=== PATIENT | female | born 1960 | race African-American/Black ===

== ENCOUNTER 2018-08-20 09:31 | Day surgery (SDC) | payer OTHER ==
[2018-08-20 10:34] VITALS: BMI 22.1
[2018-08-20] MEDS ORDERED: ceFAZolin SODIUM 1 GM VIAL ONE (11:01)
[2018-08-20] MEDS ORDERED: DEXAMETHASONE SOD PHOSPHATE 4 MG/1 ML VIAL ONE (12:47)
[2018-08-20] MEDS ORDERED: LIDOCAINE HCL/PF 2% SDV 5ML VIAL ONE (12:47)
[2018-08-20] MEDS ORDERED: PROPOFOL 20 ML ONE ×2 (12:47)
[2018-08-20] MEDS ORDERED: GLYCOPYRROLATE 0.2 MG/1 ML VIAL ONE (12:59)
[2018-08-20] MEDS ORDERED: ceFAZolin SODIUM 1 GM VIAL IVPB ONE (13:03)
[2018-08-20] MEDS ORDERED: MIDAZOLAM HCL 2 MG/2 ML SINGLE DOSE VIAL ONE (13:04)
[2018-08-20] MEDS ORDERED: LIDOCAINE HCL 1%, 10 MG/ML (20ML VIAL) ONE (13:08)
[2018-08-20] MEDS ORDERED: LIDOCAINE 1%/EPI 1:100000 (20 ML MULTI DOSE VIAL) IJ ONE (13:15)
[2018-08-20] MEDS ORDERED: KETOROLAC TROMETHAMINE 30 MG/1 ML VIAL ONE (13:41)
[2018-08-20] MEDS ORDERED: FERRIC SUBSULFATE 500 ML BOTTLE TP ONE (13:42)
[2018-08-20] MEDS ORDERED: EPHEDRINE SULFATE/0.9% NACL/PF 50 MG/10 ML SYRINGE NR ONE ×2 (13:42)
[2018-08-20] MEDS ORDERED: ACETAMINOPHEN INJECTION 100 ML IVPB ONE (13:56)
--- NOTE | 2018-08-20 13:56 | HP ---
History & Physical Update - History History: No Change (Plan for D&C, CKC.) - Physical Physical: No Change - Assessment Assessment: No Change - Plan Plan: No Change
[2018-08-20] MEDS ORDERED: PROMETHAZINE HCL 25 MG/1 ML VIAL IVPUSH PRN (14:01)
[2018-08-20] MEDS ORDERED: ONDANSETRON 4 MG/2 ML VIAL IVPUSH PRN (14:01)
[2018-08-20] MEDS ORDERED: oxyCODONE HCL 5 MG TABLET PO PRN ×2 (14:01)
[2018-08-20] MEDS ORDERED: ACETAMINOPHEN 1000 MG/100 ML VIAL (NON FORMULARY) IVPB ONE (14:02)
[2018-08-20] MEDS ORDERED: LACTATED RINGERS SOLUTION 1,000 ML IV SCH (14:15)
[2018-08-20] MEDS ORDERED: oxyCODONE HCL 5 MG TABLET PO ONE (15:38)
[2018-08-20 15:41] VITALS: PULSE 57
[2018-08-20] MEDS ORDERED: oxyCODONE HCL 5 MG TABLET ONE (15:42)
[2018-08-20 16:23] VITALS: BP 140/61; TEMP 98.4
--- NOTE | 2018-08-21 10:53 | OP ---
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 PROCEDURE: Cold knife conization of the cervix and dilatation and curettage. SURGEON: Norma Ortega MD ANESTHESIA: MAC and local. ESTIMATED BLOOD LOSS: 10 mL. COMPLICATIONS: None. INDICATIONS: This is a 58-year-old with history of pinkish postmenopausal discharge. She had a Pap smear that was negative. High-risk HPV was positive. High-risk HPV 16 was positive. Endometrial biopsy on July 16, 2018, showed fragments of squamous cell carcinoma. Endocervical curettage showed squamous cell carcinoma. Cervical biopsy at 6 and 12 o'clock showed benign ectocervix. CT scan of the chest, abdomen, and pelvis showed a hematometra. Otherwise, there was no lymphadenopathy or masses visualized. The patient was counseled regarding surgical management. Risks, benefits, indications, and alternatives were discussed with the patient. All questions were answered. Informed consent was signed. Patient was advised that this was a diagnostic and not therapeutic procedure as it will direct the type of hysterectomy necessary. DESCRIPTION OF PROCEDURE: The patient was brought to the operating room, placed in the dorsal supine position. Moderate sedation was achieved. She was placed in the dorsal lithotomy position in Emil stirrups and prepped and draped in normal sterile fashion. Speculum was placed in the vagina. 5% acetic acid as applied to the entire cervix. A colposcopy was performed with no suspicious lesions or acetowhite epithelium seen. The cervix was infiltrated with 10 mL of 1% lidocaine and epinephrine at 3, 6, 9, and 12 o'clock into the cervical stroma. Using the 11- blade scalpel, a circumferential excision was performed around the endocervix. Using the Allis clamp, the cone specimen was grasped, and using the 11-blade knife, again excision was performed to free the specimen. It was handed off the field as cold knife conization. Uterus was then gently sounded and dilated, and there was an egress of dark brownish fluid noted, which was turbid. Endometrial curetting was performed, minimal tissue seen. The conization bed was then cauterized using the rollerball electrocautery and Monsels was applied. For added assurance, Surgicel was placed in the endocervix. Excellent hemostasis was seen. All instruments were removed from the patients vagina. The patient was awakened and transferred in stable condition to the PACU. Mirtha De [id number] MTDD
--- NOTE | 2018-08-23 14:41 | PATH ---
Surgical Pathology Report Patient Name: YOANNA MATHEW [facility]. Rec. #: [id number] /Age/Gender: 1960 (Age: 58) / F Account: [id number] Location: [facility] SURGICAL Taken: 08/20/2018 Received: 08/21/2018 Reported: 08/23/2018 Physicians: Norma Ortega MD Specimen(s) Received A: CERVIX, COLD KNIFE CONE BIOPSY B: ENDOCERVICAL CURETTINGS C: ENDOMETRIAL CURETTINGS Clinical History Cervix cancer, hematometra Final Diagnosis A. CERVIX, COLD KNIFE CONE BIOPSY: INVASIVE SQUAMOUS CELL CARCINOMA, NONKERATINIZING TYPE, MEASURING 3 CM IN GREATEST DIMENSION. MARGINS ARE INVOLVED BY INVASIVE CARCINOMA. DEPTH OF STROMAL INVASION: 6MM LYMPHOVASCULAR INVASION IDENTIFIED. B. ENDOCERVICAL CURETTINGS: FRAGMENTS OF SQUAMOUS CELL CARCINOMA. C. ENDOMETRIAL CURETTINGS: FRAGMENTS OF SQUAMOUS CELL CARCINOMA. NO ENDOMETRIAL TISSUE PRESENT. Comments Surgical Pathology Cancer Case Summary Procedure _x_ Cold knife cone excision Tumor Site _x_ Cannot be determined: unoriented specimen. Tumor Size Greatest dimension (centimeters): 3cm (tumor involves all serial sections of the specimen) + Additional dimensions (centimeters): 1.0 x 0.6cm (depth of invasion) Histologic Type _x_ Squamous cell carcinoma, nonkeratinizing Histologic Grade _x_ G2: Moderately differentiated Stromal Invasion Depth of stromal invasion (millimeters): 6mm Margins Cervical margins and deep margin _x_ Involved by invasive carcinoma Lymphovascular Invasion _x_ Present Electronically Signed Jenny Abbott M.D. Gross Description A. Received in formalin labeled "cervix cone biopsy," is a 3.0 x 1.5 x 1.1 cm kim portion of soft tissue, consistent with a portion of cervix. There is no cervical os present and the specimen is unoriented. The specimen is inked blue, serially sectioned and entirely and sequentially submitted in 4 cassettes. B. Received in formalin labeled "endocervical curettings," is a 1.3 x 0.9 x 0.2 cm aggregate of kim-brown soft tissue fragments. The formalin is filtered and the specimen is entirely submitted in one cassette. C. Received in formalin labeled "endometrial curettings," is a 1.8 x 1.4 x 0.3 cm aggregate of kmi-brown soft tissue fragments admixed with blood clot. The formalin is filtered and the specimen is entirely submitted in one cassette. 08/21/201808/21/2018
== END 2018-08-20 16:30 | disposition home or self-care (01) ==
LOC: JASU-SURG 09:31
PROVIDERS: ATTEND Obstetrics & Gynecology Gynecologic Oncology
PROC: 0U5C7ZZ Destruction of Cervix, Via Natural or Artificial Opening (ICD-10-PCS; principal; 2018-08-20 12:00)
PROC: 0UDB7ZX Extraction of Endometrium, Via Natural or Artificial Opening, Diagnostic (ICD-10-PCS; 2018-08-20 12:00)
DX: C53.9 Malignant neoplasm of cervix uteri, unspecified (principal); N85.7 Hematometra
CPT/HCPCS: 36415; 84702; 86850; 86900; 86901; 88305-TC; 88307-TC; 94760; J0131

== ENCOUNTER 2018-11-04 08:33 | Day surgery (SDC) | payer OTHER ==
[2018-11-01 12:13] VITALS: BMI 22.7
[2018-11-04 09:03] LABS: BASO % 0.7 % (0-2.0); EOS % 3.6 % (0-4.5); HEMATOCRIT 39.9 % (32.4-45.2); LYMPH % 40.7 % (8-40); MCH 29.1 pg (25.7-33.7); MCHC 32.7 g/dl (32.0-36.0); MEAN PLT VOLUME 7.7 fl (7.5-11.1); MONO % 7.1 % (3.8-10.2); NEUT % 47.9 % (42.8-82.8); PLATELET COUNT 308 K/MM3 (134-434); RBC 4.48 M/mm3 (3.60-5.2); RDW 14.2 % (11.6-15.6); WHITE BLOOD COUNT 4.4 K/mm3 (4.0-10.0)
[2018-11-04 09:29] LABS: ALBUMIN 3.9 g/dl (3.4-5.0); BILIRUBIN,TOTAL 0.2 mg/dL (0.2-1); BLOOD UREA NITROGEN 12.9 mg/dL (7-18); CALCIUM 9.7 mg/dL (8.5-10.1); CREATININE 0.8 mg/dL (0.55-1.3); MAGNESIUM 2.2 mg/dL (1.8-2.4); POTASSIUM 4.4 mmol/L (3.5-5.1); PREALBUMIN 31.5 mg/dl (20-40); TOT PROT 7.5 g/dl (6.4-8.2)
[2018-11-04 12:22] VITALS: TEMP 98.1
[2018-11-04 13:05] VITALS: BP 139/43; PULSE 66
== END 2018-11-04 13:00 | disposition home or self-care (01) ==
LOC: JRADIR 08:33
PROVIDERS: ATTEND Internal Medicine Hematology & Oncology
PROC: 0JH63XZ Insertion of Tunneled Vascular Access Device into Chest Subcutaneous Tissue and Fascia, Percutaneous Approach (ICD-10-PCS; principal; 2018-11-04)
PROC: 02HV33Z Insertion of Infusion Device into Superior Vena Cava, Percutaneous Approach (ICD-10-PCS; 2018-11-04)
PROC: B518ZZA Fluoroscopy of Superior Vena Cava, Guidance (ICD-10-PCS; 2018-11-04)
DX: C53.9 Malignant neoplasm of cervix uteri, unspecified (principal)
CPT/HCPCS: 36561; C1788; 36415; 77001-TC-FY; 80053; 83735; 84134; 85025

== ENCOUNTER 2018-11-05 06:27 | Day surgery (SDC) | payer OTHER | END 2018-11-05 17:17 | disposition home or self-care (01) | LOC: JONCCHEMO 06:27 → J7W 09:56 → JONCCHEMO 17:17 ==

== ENCOUNTER 2018-11-12 06:19 | Day surgery (SDC) | payer OTHER ==
[2018-11-11 11:07] LABS: BASO % 0.5 % (0-2.0); EOS % 2.1 % (0-4.5); HEMATOCRIT 40.8 % (32.4-45.2); HEMOGLOBIN 13.4 GM/dL (10.7-15.3); LYMPH % 32.8 % (8-40); MCH 29.2 pg (25.7-33.7); MCHC 32.8 g/dl (32.0-36.0); MEAN PLT VOLUME 7.8 fl (7.5-11.1); MONO % 7.8 % (3.8-10.2); NEUT % 56.8 % (42.8-82.8); PLATELET COUNT 302 K/MM3 (134-434); RBC 4.58 M/mm3 (3.60-5.2); RDW 14.1 % (11.6-15.6); WHITE BLOOD COUNT 2.8 K/mm3 (4.0-10.0)
[2018-11-11 11:35] LABS: BILIRUBIN,TOTAL 0.2 mg/dL (0.2-1); BLOOD UREA NITROGEN 19.8 mg/dL (7-18); CALCIUM 9.7 mg/dL (8.5-10.1); CREATININE 0.8 mg/dL (0.55-1.3); MAGNESIUM 2.2 mg/dL (1.8-2.4); POTASSIUM 4.1 mmol/L (3.5-5.1); TOT PROT 7.7 g/dl (6.4-8.2)
[~2018-11-12 06:19] MED LIST: CISPLATIN IV ONE; DEXAMETHASONE SODIUM PHOSPHATE 10 MG in SODIUM CHLORIDE 50 ML IVPB ONE; FOSAPREPITANT DIMEGLUMINE 150 MG in SODIUM CHLORIDE 150 ML IVPB ONE; MAGNESIUM SULFATE IVPB ONE; MANNITOL IVPB ONE; PALONOSETRON HCL 0.25 MG/5 ML VIAL IVPUSH ONE; POTASSIUM CHLORIDE IVPB ONE; SODIUM CHLORIDE IV ONE; [UNRECOGNIZED DRUG - OTHER] IVPB ONE
[2018-11-12] MEDS ORDERED: [UNRECOGNIZED DRUG - OTHER] IVPB ONE (08:00)
[2018-11-12] MEDS ORDERED: MAGNESIUM SULFATE IVPB ONE (08:00)
[2018-11-12] MEDS ORDERED: MANNITOL IVPB ONE (08:00)
[2018-11-12] MEDS ORDERED: POTASSIUM CHLORIDE IVPB ONE (08:00)
[2018-11-12] MEDS ORDERED: DEXAMETHASONE SODIUM PHOSPHATE 10 MG in SODIUM CHLORIDE 50 ML IVPB ONE (10:00)
[2018-11-12] MEDS ORDERED: FOSAPREPITANT DIMEGLUMINE 150 MG in SODIUM CHLORIDE 150 ML IVPB ONE (10:00)
[2018-11-12] MEDS ORDERED: PALONOSETRON HCL 0.25 MG/5 ML VIAL IVPUSH ONE (10:00)
[2018-11-12] MEDS ORDERED: SODIUM CHLORIDE IV ONE (10:30)
[2018-11-12] MEDS ORDERED: CISPLATIN IV ONE (10:30)
[2018-11-12] MEDS ORDERED: SODIUM CHLORIDE 0.45% 1,000 ML IV ONE (11:30)
[2018-11-12] MEDS ORDERED: MAGNESIUM SULF 50% (8.12 MEQ/2 ML-1 GM VIAL) IVPB ONE (11:30)
[2018-11-12 12:17] VITALS: TEMP 98.4
[2018-11-12] MEDS ORDERED: PORTA CATH FLUSH 10 ML IVPUSH ONE ×2 (17:21→18:16)
[2018-11-12 18:16] VITALS: BP 104/71; PULSE 66
== END 2018-11-12 18:12 | disposition home or self-care (01) ==
LOC: JONCCHEMO 06:19 → J7W 10:48 → JONCCHEMO 18:12
PROVIDERS: ATTEND Internal Medicine Hematology & Oncology
PROC: 3E04305 Introduction of Other Antineoplastic into Central Vein, Percutaneous Approach (ICD-10-PCS; principal; 2018-11-12)
PROC: 3E043GC Introduction of Other Therapeutic Substance into Central Vein, Percutaneous Approach (ICD-10-PCS; 2018-11-12)
PROC: 3E0437Z Introduction of Electrolytic and Water Balance Substance into Central Vein, Percutaneous Approach (ICD-10-PCS; 2018-11-12)
DX: Z51.11 Encounter for antineoplastic chemotherapy (principal); C53.8 Malignant neoplasm of overlapping sites of cervix uteri
CPT/HCPCS: 36415; 80053; 83735; 85025; 96361; 96367; 96375; 96413; J1453; J2469; J7030

== ENCOUNTER 2018-11-13 05:46 | Day surgery (SDC) | payer OTHER ==
[2018-11-13] MEDS ORDERED: TBO-FILGRASTIM 300 MCG/0.5 ML DISP.SYRINGE SQ ONE (14:45)
[2018-11-13 16:36] VITALS: BP 136/69; PULSE 76; TEMP 98
== END 2018-11-13 15:00 | disposition home or self-care (01) ==
LOC: JONCCHEMO 05:46 → J7W 14:11 → JONCCHEMO 15:00
PROVIDERS: ATTEND Internal Medicine Hematology & Oncology
PROC: 3E013GC Introduction of Other Therapeutic Substance into Subcutaneous Tissue, Percutaneous Approach (ICD-10-PCS; principal; 2018-11-13)
DX: Z76.89 Persons encountering health services in other specified circumstances (principal); Z53.8 Procedure and treatment not carried out for other reasons
CPT/HCPCS: 96372; J1447

== ENCOUNTER 2018-11-19 05:33 | Day surgery (SDC) | payer OTHER ==
[2018-11-19] MEDS ORDERED: [UNRECOGNIZED DRUG - OTHER] IVPB ONE (08:00)
[2018-11-19] MEDS ORDERED: MANNITOL IVPB ONE (08:00)
[2018-11-19] MEDS ORDERED: POTASSIUM CHLORIDE IVPB ONE (08:00)
[2018-11-19] MEDS ORDERED: MAGNESIUM SULFATE IVPB ONE ×2 (08:00→11:30)
[2018-11-19] MEDS ORDERED: DEXAMETHASONE SODIUM PHOSPHATE 10 MG in SODIUM CHLORIDE 50 ML IVPB ONE (10:00)
[2018-11-19] MEDS ORDERED: FOSAPREPITANT DIMEGLUMINE 150 MG in SODIUM CHLORIDE 150 ML IVPB ONE (10:00)
[2018-11-19] MEDS ORDERED: PALONOSETRON HCL 0.25 MG/5 ML VIAL IVPUSH ONE (10:00)
[2018-11-19] MEDS ORDERED: CISPLATIN IV ONE (10:30)
[2018-11-19] MEDS ORDERED: SODIUM CHLORIDE IV ONE (10:30)
[2018-11-19 10:46] LABS: BASO % 0.7 % (0-2.0); EOS % 1.8 % (0-4.5); HEMATOCRIT 38.8 % (32.4-45.2); HEMOGLOBIN 12.7 GM/dL (10.7-15.3); MCH 29.3 pg (25.7-33.7); MCHC 32.8 g/dl (32.0-36.0); MEAN CELL VOLUME 89.1 fl (80-96); MEAN PLT VOLUME 7.2 fl (7.5-11.1); MONO % 14.9 % (3.8-10.2); NEUT % 60.6 % (42.8-82.8); PLATELET COUNT 184 K/MM3 (134-434); RBC 4.35 M/mm3 (3.60-5.2); RDW 13.7 % (11.6-15.6); WHITE BLOOD COUNT 2.6 K/mm3 (4.0-10.0)
[2018-11-19 11:11] LABS: ALBUMIN 3.9 g/dl (3.4-5.0); BILIRUBIN,DIRECT 0.1 mg/dL (0.0-0.2); BILIRUBIN,TOTAL 0.2 mg/dL (0.2-1); BLOOD UREA NITROGEN 13.9 mg/dL (7-18); CALCIUM 9.3 mg/dL (8.5-10.1); MAGNESIUM 2.1 mg/dL (1.8-2.4); POTASSIUM 3.9 mmol/L (3.5-5.1); TOT PROT 7.3 g/dl (6.4-8.2)
[2018-11-19] MEDS ORDERED: SODIUM CHLORIDE 0.45% IVPB ONE (11:30)
[2018-11-19 17:53] VITALS: TEMP 98.5
[2018-11-19] MEDS ORDERED: PORTA CATH FLUSH 10 ML IVPUSH ONE ×2 (17:56→18:32)
[2018-11-19 21:18] VITALS: BP 140/74; PULSE 65
== END 2018-11-19 21:20 | disposition home or self-care (01) ==
LOC: JONCCHEMO 05:33 → J7W 12:42 → JONCCHEMO 21:20
PROVIDERS: ATTEND Internal Medicine Hematology & Oncology
DX: Z51.11 Encounter for antineoplastic chemotherapy (principal); C53.8 Malignant neoplasm of overlapping sites of cervix uteri
CPT/HCPCS: 36415; 80048; 80076; 83735; 85025; 96361; 96367; 96375; 96413; J1453; J2469; J7030

== ENCOUNTER 2018-11-20 05:35 | Day surgery (SDC) | payer OTHER ==
[2018-11-20] MEDS ORDERED: TBO-FILGRASTIM 480 MCG/0.8 ML DISP.SYRIN SQ ONE (12:15)
[2018-11-20 15:03] VITALS: BP 139/78; PULSE 63; TEMP 97.8
== END 2018-11-20 14:00 | disposition home or self-care (01) ==
LOC: JONCCHEMO 05:35 → J7W 12:04 → JONCCHEMO 14:00
PROVIDERS: ATTEND Internal Medicine Hematology & Oncology
PROC: 3E013GC Introduction of Other Therapeutic Substance into Subcutaneous Tissue, Percutaneous Approach (ICD-10-PCS; principal; 2018-11-20)
DX: C53.8 Malignant neoplasm of overlapping sites of cervix uteri (principal); Z76.89 Persons encountering health services in other specified circumstances
CPT/HCPCS: 96372; J1447

== ENCOUNTER 2018-11-26 05:28 | Day surgery (SDC) | payer OTHER ==
[2018-11-26] MEDS ORDERED: MAGNESIUM SULFATE IVPB ONE ×2 (09:00→12:00)
[2018-11-26] MEDS ORDERED: MANNITOL IVPB ONE (09:00)
[2018-11-26] MEDS ORDERED: [UNRECOGNIZED DRUG - OTHER] IVPB ONE (09:00)
[2018-11-26] MEDS ORDERED: POTASSIUM CHLORIDE IVPB ONE (09:00)
[2018-11-26] MEDS ORDERED: DEXAMETHASONE SODIUM PHOSPHATE 10 MG in SODIUM CHLORIDE 50 ML IVPB ONE (10:30)
[2018-11-26] MEDS ORDERED: PALONOSETRON HCL 0.25 MG/5 ML VIAL IVPUSH ONE (10:30)
[2018-11-26] MEDS ORDERED: FOSAPREPITANT DIMEGLUMINE 150 MG in SODIUM CHLORIDE 145 ML IVPB ONE (10:30)
[2018-11-26] MEDS ORDERED: SODIUM CHLORIDE IV ONE (11:00)
[2018-11-26] MEDS ORDERED: CISPLATIN IV ONE (11:00)
[2018-11-26] MEDS ORDERED: SODIUM CHLORIDE 0.45% IVPB ONE (12:00)
[2018-11-26 12:03] LABS: BASO % 0.6 % (0-2.0); EOS % 1.6 % (0-4.5); HEMATOCRIT 37.6 % (32.4-45.2); HEMOGLOBIN 12.5 GM/dL (10.7-15.3); LYMPH % 27.7 % (8-40); MCH 29.4 pg (25.7-33.7); MCHC 33.3 g/dl (32.0-36.0); MEAN CELL VOLUME 88.4 fl (80-96); MEAN PLT VOLUME 7.2 fl (7.5-11.1); MONO % 19.9 % (3.8-10.2); NEUT % 50.2 % (42.8-82.8); PLATELET COUNT 204 K/MM3 (134-434); RBC 4.25 M/mm3 (3.60-5.2); RDW 13.7 % (11.6-15.6); WHITE BLOOD COUNT 2.2 K/mm3 (4.0-10.0)
[2018-11-26 12:27] LABS: ALBUMIN 3.9 g/dl (3.4-5.0); BILIRUBIN,DIRECT 0.1 mg/dL (0.0-0.2); BILIRUBIN,TOTAL 0.2 mg/dL (0.2-1); BLOOD UREA NITROGEN 11.7 mg/dL (7-18); CALCIUM 8.9 mg/dL (8.5-10.1); CREATININE 0.9 mg/dL (0.55-1.3); POTASSIUM 4.1 mmol/L (3.5-5.1); TOT PROT 7.4 g/dl (6.4-8.2)
[2018-11-26] MEDS ORDERED: DEXAMETHASONE INJECTION 8 MG, ONDANSETRON INJECTION 8 MG in SODIUM CHLORIDE 100 ML IVPB ONE (13:45)
[2018-11-26] MEDS ORDERED: TBO-FILGRASTIM 480 MCG/0.8 ML DISP.SYRIN SQ ONE (13:45)
[2018-11-26] MEDS ORDERED: MAGNESIUM SO4 IVPB SCH ×2 (14:15)
[2018-11-26] MEDS ORDERED: DEXTROSE 5% IVPB SCH (14:15)
[2018-11-26] MEDS ORDERED: NORMAL SALINE IVPB SCH ×2 (14:15)
[2018-11-26] MEDS ORDERED: DEXTROSE IVPB SCH (14:15)
[2018-11-26] MEDS ORDERED: POTASSIUM CHLORIDE IVPB SCH ×2 (14:15)
[2018-11-26 17:40] VITALS: TEMP 98
[2018-11-26 17:50] VITALS: BP 151/69; PULSE 62
[2018-11-26] MEDS ORDERED: PORTA CATH FLUSH 10 ML IVPUSH ONE (17:50)
== END 2018-11-26 17:20 | disposition home or self-care (01) ==
LOC: JONCCHEMO 05:28 → J7W 11:35 → JONCCHEMO 17:20
PROVIDERS: ATTEND Internal Medicine Hematology & Oncology
PROC: 3E013GC Introduction of Other Therapeutic Substance into Subcutaneous Tissue, Percutaneous Approach (ICD-10-PCS; principal; 2018-11-26)
PROC: 3E043GC Introduction of Other Therapeutic Substance into Central Vein, Percutaneous Approach (ICD-10-PCS; 2018-11-26)
PROC: 3E043GC Introduction of Other Therapeutic Substance into Central Vein, Percutaneous Approach (ICD-10-PCS; 2018-11-26)
DX: C53.8 Malignant neoplasm of overlapping sites of cervix uteri (principal); Z76.89 Persons encountering health services in other specified circumstances
CPT/HCPCS: 36415; 80048; 80076; 83735; 85025; 96361; 96365; 96367; 96372; 96375; J1447

== ENCOUNTER 2018-11-27 05:52 | Day surgery (SDC) | payer OTHER ==
[2018-11-27] MEDS ORDERED: D5-NS + 20 MEQ KCL - 20 MEQ/1,000 ML INFUS.BAG IV SCH (10:45)
[2018-11-27] MEDS ORDERED: TBO-FILGRASTIM 480 MCG/0.8 ML DISP.SYRIN SQ ONE (10:45)
[2018-11-27] MEDS ORDERED: DEXAMETHASONE SOD PHOSPHATE 4 MG/1 ML VIAL IVPB ONE (11:45)
[2018-11-27] MEDS ORDERED: ONDANSETRON 4 MG/2 ML VIAL IVPB ONE (11:45)
[2018-11-27] MEDS ORDERED: DEXTROSE 5% IVPB SCH ×2 (12:30)
[2018-11-27] MEDS ORDERED: POTASSIUM CHLORIDE IVPB SCH ×2 (12:30)
[2018-11-27] MEDS ORDERED: NORMAL SALINE IVPB SCH ×2 (12:30)
[2018-11-27 16:52] VITALS: TEMP 98.5
[2018-11-27 16:53] VITALS: BP 127/72; PULSE 69
== END 2018-11-27 15:30 | disposition home or self-care (01) ==
LOC: JONCCHEMO 05:52 → J7W 10:40 → JONCCHEMO 15:30
PROVIDERS: ATTEND Internal Medicine Hematology & Oncology
PROC: 3E013GC Introduction of Other Therapeutic Substance into Subcutaneous Tissue, Percutaneous Approach (ICD-10-PCS; principal; 2018-11-27)
PROC: 3E043GC Introduction of Other Therapeutic Substance into Central Vein, Percutaneous Approach (ICD-10-PCS; 2018-11-27)
PROC: 3E043GC Introduction of Other Therapeutic Substance into Central Vein, Percutaneous Approach (ICD-10-PCS; 2018-11-27)
DX: C53.8 Malignant neoplasm of overlapping sites of cervix uteri (principal); Z76.89 Persons encountering health services in other specified circumstances
CPT/HCPCS: 96361; 96365; 96367; 96372; 96375; J1447

== ENCOUNTER 2018-11-28 08:56 | Day surgery (SDC) | payer OTHER ==
[2018-11-28 11:09] LABS: BASO % 0.1 % (0-2.0); HEMATOCRIT 35.5 % (32.4-45.2); HEMOGLOBIN 11.5 GM/dL (10.7-15.3); LYMPH % 3.8 % (8-40); MCH 28.7 pg (25.7-33.7); MCHC 32.6 g/dl (32.0-36.0); MEAN CELL VOLUME 88.2 fl (80-96); MEAN PLT VOLUME 7.3 fl (7.5-11.1); MONO % 3.3 % (3.8-10.2); NEUT % 92.8 % (42.8-82.8); PLATELET COUNT 205 K/MM3 (134-434); RBC 4.02 M/mm3 (3.60-5.2); RDW 13.9 % (11.6-15.6); WHITE BLOOD COUNT 23.6 K/mm3 (4.0-10.0)
[2018-11-28] MEDS ORDERED: SODIUM CHLORIDE IV ONE (11:15)
[2018-11-28] MEDS ORDERED: DEXAMETHASONE SODIUM PHOSPHATE 10 MG in SODIUM CHLORIDE 50 ML IVPB ONE (11:15)
[2018-11-28] MEDS ORDERED: CISPLATIN IV ONE (11:15)
[2018-11-28] MEDS ORDERED: PALONOSETRON HCL 0.25 MG/5 ML VIAL IVPUSH ONE (11:15)
[2018-11-28] MEDS ORDERED: SODIUM CHLORIDE 0.45% IVPB ONE (11:15)
[2018-11-28] MEDS ORDERED: MAGNESIUM SULFATE IVPB ONE ×2 (11:15→11:30)
[2018-11-28] MEDS ORDERED: FOSAPREPITANT DIMEGLUMINE 150 MG in SODIUM CHLORIDE 145 ML IVPB ONE (11:30)
[2018-11-28] MEDS ORDERED: MANNITOL IVPB ONE (11:30)
[2018-11-28] MEDS ORDERED: POTASSIUM CHLORIDE IVPB ONE (11:30)
[2018-11-28] MEDS ORDERED: [UNRECOGNIZED DRUG - OTHER] IVPB ONE (11:30)
[2018-11-28 11:44] LABS: ALBUMIN 3.8 g/dl (3.4-5.0); BILIRUBIN,TOTAL 0.1 mg/dL (0.2-1); BLOOD UREA NITROGEN 10.6 mg/dL (7-18); CALCIUM 9.1 mg/dL (8.5-10.1); MAGNESIUM 1.7 mg/dL (1.8-2.4); POTASSIUM 3.6 mmol/L (3.5-5.1); TOT PROT 6.9 g/dl (6.4-8.2)
[2018-11-28 12:30] LABS: ANISOCYTOSIS 0; MACROCYTOSIS 0; PLATELET ESTIMATE NORMAL
[2018-11-28 17:15] VITALS: TEMP 98.8
[2018-11-28] MEDS ORDERED: PORTA CATH FLUSH 10 ML IVPUSH ONE (17:15)
[2018-11-28 17:17] VITALS: BP 131/64; PULSE 67
== END 2018-11-28 17:05 | disposition home or self-care (01) ==
LOC: JONCCHEMO 08:56 → J7W 11:23 → JONCCHEMO 17:05
PROVIDERS: ATTEND Internal Medicine Hematology & Oncology
DX: Z51.11 Encounter for antineoplastic chemotherapy (principal); C53.8 Malignant neoplasm of overlapping sites of cervix uteri
CPT/HCPCS: 36415; 80053; 83735; 85025; 96361; 96367; 96375; 96413; J1453; J2469; J7030

== ENCOUNTER 2018-11-29 05:40 | Day surgery (SDC) | payer OTHER ==
[2018-11-29] MEDS ORDERED: DEXAMETHASONE INJECTION 8 MG, ONDANSETRON INJECTION 8 MG in SODIUM CHLORIDE 100 ML IVPB ONE (10:00)
[2018-11-29] MEDS ORDERED: D5-NS + 20 MEQ KCL - 20 MEQ/1,000 ML INFUS.BAG IV SCH (10:00)
[2018-11-29] MEDS ORDERED: MAGNESIUM SULF 50% (8.12 MEQ/2 ML-1 GM VIAL) IVPB ONE (10:00)
[2018-11-29 16:19] VITALS: BP 137/40; PULSE 65; TEMP 97.7
[2018-11-29] MEDS ORDERED: PORTA CATH FLUSH 10 ML IVPUSH ONE (16:19)
== END 2018-11-29 14:00 | disposition home or self-care (01) ==
LOC: JONCNONCHE 05:40 → J7W 10:57 → JONCNONCHE 14:00
PROVIDERS: ATTEND Internal Medicine Hematology & Oncology
PROC: 3E043GC Introduction of Other Therapeutic Substance into Central Vein, Percutaneous Approach (ICD-10-PCS; principal; 2018-11-29)
PROC: 3E0437Z Introduction of Electrolytic and Water Balance Substance into Central Vein, Percutaneous Approach (ICD-10-PCS; 2018-11-29)
DX: Z76.89 Persons encountering health services in other specified circumstances (principal); C53.8 Malignant neoplasm of overlapping sites of cervix uteri
CPT/HCPCS: 96360; 96365; J1100

== ENCOUNTER 2018-12-03 11:02 | Day surgery (SDC) | payer OTHER ==
[2018-12-03] MEDS ORDERED: MAGNESIUM SULFATE IVPB ONE (12:30)
[2018-12-03] MEDS ORDERED: DEXAMETHASONE INJECTION 8 MG, ONDANSETRON INJECTION 8 MG in SODIUM CHLORIDE 100 ML IVPUSH ONE (12:30)
[2018-12-03] MEDS ORDERED: POTASSIUM CHLORIDE IVPB ONE (12:30)
[2018-12-03] MEDS ORDERED: SODIUM CHLORIDE IVPB ONE (12:30)
[2018-12-03] MEDS ORDERED: MAGNESIUM SULF 50% (8.12 MEQ/2 ML-1 GM VIAL) IVPB ONE (13:00)
[2018-12-03] MEDS ORDERED: SODIUM CHLORIDE 0.9%/KCL 20 MEQ/1,000 ML INFUS.BAG IV ONE (13:00)
[2018-12-03 16:06] VITALS: TEMP 97.9
[2018-12-03 16:58] VITALS: BP 136/80; PULSE 65
== END 2018-12-03 16:59 | disposition home or self-care (01) ==
LOC: JONCNONCHE 11:02 → J7W 11:40 → JONCNONCHE 16:59
PROVIDERS: ATTEND Internal Medicine Hematology & Oncology
PROC: 3E043GC Introduction of Other Therapeutic Substance into Central Vein, Percutaneous Approach (ICD-10-PCS; principal; 2018-12-03)
PROC: 3E0437Z Introduction of Electrolytic and Water Balance Substance into Central Vein, Percutaneous Approach (ICD-10-PCS; 2018-12-03)
DX: Z76.89 Persons encountering health services in other specified circumstances (principal); C53.8 Malignant neoplasm of overlapping sites of cervix uteri
CPT/HCPCS: 96360; 96361; 96365

== ENCOUNTER 2018-12-04 07:04 | Day surgery (SDC) | payer OTHER ==
[2018-12-04] MEDS ORDERED: DEXAMETHASONE INJECTION 8 MG, ONDANSETRON INJECTION 8 MG in SODIUM CHLORIDE 100 ML IVPB ONE (10:00)
[2018-12-04] MEDS ORDERED: SODIUM CHLORIDE 0.9%/KCL 20 MEQ/1,000 ML INFUS.BAG IV ONE (10:00)
[2018-12-04] MEDS ORDERED: MAGNESIUM SULF 50% (8.12 MEQ/2 ML-1 GM VIAL) IVPB ONE (10:00)
[2018-12-04 16:08] VITALS: BP 135/76; PULSE 73; TEMP 98
[2018-12-04] MEDS ORDERED: PORTA CATH FLUSH 10 ML IVPUSH ONE (16:08)
== END 2018-12-04 15:15 | disposition home or self-care (01) ==
LOC: JONCNONCHE 07:04 → J7W 11:18 → JONCNONCHE 15:15
PROVIDERS: ATTEND Internal Medicine Hematology & Oncology
PROC: 3E043GC Introduction of Other Therapeutic Substance into Central Vein, Percutaneous Approach (ICD-10-PCS; principal; 2018-12-04)
PROC: 3E043GC Introduction of Other Therapeutic Substance into Central Vein, Percutaneous Approach (ICD-10-PCS; 2018-12-04)
DX: C53.8 Malignant neoplasm of overlapping sites of cervix uteri (principal); E87.6 Hypokalemia; Z76.89 Persons encountering health services in other specified circumstances
CPT/HCPCS: 96360; 96361; 96365; 96367; J1100

== ENCOUNTER 2018-12-05 07:07 | Day surgery (SDC) | payer OTHER ==
[2018-12-05] MEDS ORDERED: MANNITOL IVPB ONE (08:00)
[2018-12-05] MEDS ORDERED: POTASSIUM CHLORIDE IVPB ONE (08:00)
[2018-12-05] MEDS ORDERED: [UNRECOGNIZED DRUG - OTHER] IVPB ONE (08:00)
[2018-12-05] MEDS ORDERED: MAGNESIUM SULFATE IVPB ONE ×2 (08:00→12:00)
[2018-12-05] MEDS ORDERED: DEXAMETHASONE SODIUM PHOSPHATE 10 MG in SODIUM CHLORIDE 50 ML IVPB ONE (10:00)
[2018-12-05] MEDS ORDERED: FOSAPREPITANT DIMEGLUMINE 150 MG in SODIUM CHLORIDE 150 ML IVPB ONE (10:00)
[2018-12-05] MEDS ORDERED: PALONOSETRON HCL 0.25 MG/5 ML VIAL IVPUSH ONE (10:00)
[2018-12-05] MEDS ORDERED: SODIUM CHLORIDE IV ONE (10:30)
[2018-12-05] MEDS ORDERED: CISPLATIN IV ONE (10:30)
[2018-12-05] MEDS ORDERED: SODIUM CHLORIDE 0.45% IVPB ONE (12:00)
[2018-12-05 15:28] LABS: BASO % 0.2 % (0-2.0); EOS % 0.2 % (0-4.5); HEMATOCRIT 33.8 % (32.4-45.2); HEMOGLOBIN 11.2 GM/dL (10.7-15.3); LYMPH % 14.7 % (8-40); MCH 29.3 pg (25.7-33.7); MEAN CELL VOLUME 88.8 fl (80-96); MEAN PLT VOLUME 7.8 fl (7.5-11.1); MONO % 7.8 % (3.8-10.2); NEUT % 77.1 % (42.8-82.8); PLATELET COUNT 171 K/MM3 (134-434); RBC 3.81 M/mm3 (3.60-5.2); RDW 14.2 % (11.6-15.6); WHITE BLOOD COUNT 4.8 K/mm3 (4.0-10.0)
[2018-12-05 16:05] LABS: ALBUMIN 3.6 g/dl (3.4-5.0); BILIRUBIN,TOTAL 0.2 mg/dL (0.2-1); BLOOD UREA NITROGEN 16.2 mg/dL (7-18); CALCIUM 8.6 mg/dL (8.5-10.1); CREATININE 1.2 mg/dL (0.55-1.3); MAGNESIUM 1.8 mg/dL (1.8-2.4); POTASSIUM 3.3 mmol/L (3.5-5.1); TOT PROT 6.5 g/dl (6.4-8.2)
[2018-12-05 16:38] VITALS: TEMP 97.8
--- NOTE | 2018-12-05 17:37 | HP ---
Admitting History and Physical - Past Medical History ...LMP: 07/27/16 - Smoking History Smoking history: Current every day smoker Have you smoked in the past 12 months: Yes Aproximately how many cigarettes per day: 3 - Alcohol/Substance Use Hx Alcohol Use: No Home Medications - Allergies Allergies/Adverse Reactions: Allergies Allergy/AdvReac Type Severity Reaction Status Date / Time No Known Drug Allergies Allergy Verified 11/04/18 09:18 environmental Allergy Uncoded 11/04/18 09:18 - Home Medications Home Medications: Ambulatory Orders Loperamide HCl [Loperamide] 2 mg PO PRN PRN 11/26/18 Ondansetron [Zofran -] 4 mg PO PRN 11/26/18 Physical Examination Vital Signs: Vital Signs Temperature 97.8 F 12/05/18 12:47 Pulse Rate 67 12/05/18 12:47 Respiratory Rate 18 12/05/18 12:47 Blood Pressure 125/72 12/05/18 12:47 O2 Sat by Pulse Oximetry (%) Labs: CBC, BMP 12/05/18 13:15 12/05/18 13:15 Assessment/Plan Patient seen and examined Cervical ca receiving chemotherapy with cis kletsel dehe wintun and concurrent RT. Last Vital Signs Temp Pulse Resp BP Pulse Ox 97.8 F 67 18 125/72 12/05/18 12:47 12/05/18 12:47 12/05/18 12:47 12/05/18 12:47 HEENT: EDWIN, EOM Intact Oropharynx: No thrush, No mucositis Cor: RSR, No murmurs, No gallops Lungs: Clear to P&A Abd: Soft, Normal bowel sounds, No organomegaly Ext:No significant edema Skin: No rashes, Integument intact CBC, BMP 12/05/18 13:15 12/05/18 13:15 Current Medications Generic Name Dose Route Start Last Admin Trade Name Freq PRN Reason Stop Dose Admin Potassium Chloride 20 meq 12/05/18 18:00 K-Dur - PO 12/05/18 18:01 BID ONE Impresion: Cervical ca Hypokalemia Hydrate Replete K= Cis kletsel dehe wintun
[2018-12-05] MEDS ORDERED: POTASSIUM CHLORIDE TABS 20 MEQ TABLET.ER (FP) PO ONE (18:00)
[2018-12-05 18:26] VITALS: BP 138/75; PULSE 70
== END 2018-12-05 18:26 | disposition home or self-care (01) ==
LOC: JONCCHEMO 07:07 → JERBED 12:38 → J7W 12:43 → JONCCHEMO 18:26
PROVIDERS: ATTEND Internal Medicine Hematology & Oncology
DX: Z51.11 Encounter for antineoplastic chemotherapy (principal); C53.8 Malignant neoplasm of overlapping sites of cervix uteri; E87.6 Hypokalemia
CPT/HCPCS: 36415; 80053; 83735; 85025; 96361; 96367; 96375; 96413; J1453; J2469; J7030

== ENCOUNTER 2018-12-12 07:06 | Day surgery (SDC) | payer OTHER ==
[2018-12-12] MEDS ORDERED: POTASSIUM CHLORIDE 20 MEQ, MAGNESIUM SULFATE 1 GM in SODIUM CHLORIDE 1,000 ML IVPB ONE (09:00)
[2018-12-12] MEDS ORDERED: MANNITOL IVPB ONE (09:00)
[2018-12-12] MEDS ORDERED: MAGNESIUM SULFATE IVPB ONE ×2 (09:00→12:00)
[2018-12-12] MEDS ORDERED: [UNRECOGNIZED DRUG - OTHER] IVPB ONE (09:00)
[2018-12-12] MEDS ORDERED: POTASSIUM CHLORIDE IVPB ONE (09:00)
[2018-12-12] MEDS ORDERED: PALONOSETRON HCL 0.25 MG/5 ML VIAL IVPUSH ONE (10:30)
[2018-12-12] MEDS ORDERED: DEXAMETHASONE SODIUM PHOSPHATE 10 MG in SODIUM CHLORIDE 50 ML IVPB ONE (10:30)
[2018-12-12] MEDS ORDERED: FOSAPREPITANT DIMEGLUMINE 150 MG in SODIUM CHLORIDE 145 ML IVPB ONE (10:30)
[2018-12-12] MEDS ORDERED: CISPLATIN IV ONE (11:00)
[2018-12-12] MEDS ORDERED: SODIUM CHLORIDE IV ONE (11:00)
[2018-12-12] MEDS ORDERED: SODIUM CHLORIDE 0.45% IVPB ONE (12:00)
[2018-12-12 14:01] LABS: BASO % 0.4 % (0-2.0); EOS % 0.9 % (0-4.5); HEMATOCRIT 34.5 % (32.4-45.2); HEMOGLOBIN 11.5 GM/dL (10.7-15.3); MCH 29.6 pg (25.7-33.7); MCHC 33.5 g/dl (32.0-36.0); MEAN CELL VOLUME 88.4 fl (80-96); MEAN PLT VOLUME 6.7 fl (7.5-11.1); MONO % 10.2 % (3.8-10.2); NEUT % 68.5 % (42.8-82.8); PLATELET COUNT 186 K/MM3 (134-434); RDW 14.7 % (11.6-15.6); WHITE BLOOD COUNT 2.5 K/mm3 (4.0-10.0)
[2018-12-12 14:32] LABS: ALBUMIN 3.8 g/dl (3.4-5.0); BILIRUBIN,TOTAL 0.3 mg/dL (0.2-1); BLOOD UREA NITROGEN 13.6 mg/dL (7-18); CALCIUM 8.7 mg/dL (8.5-10.1); MAGNESIUM 1.6 mg/dL (1.8-2.4); POTASSIUM 3.6 mmol/L (3.5-5.1)
[2018-12-12] MEDS ORDERED: MAGNESIUM OXIDE 400 MG TABLET (FP) PO ONE (14:36)
[2018-12-12 17:28] VITALS: BP 145/74; PULSE 67; TEMP 97.9
== END 2018-12-12 21:32 | disposition home or self-care (01) ==
LOC: JONCCHEMO 07:06 → J7W 15:13 → JONCCHEMO 21:32
PROVIDERS: ATTEND Internal Medicine Hematology & Oncology
DX: Z51.11 Encounter for antineoplastic chemotherapy (principal); C53.8 Malignant neoplasm of overlapping sites of cervix uteri; E87.6 Hypokalemia
CPT/HCPCS: 36415; 80053; 83735; 85025; 96361; 96375; 96413; J1453; J2469; J7030

== ENCOUNTER 2018-12-19 16:26 | Emergency (ER) | payer OTHER ==
[2018-12-19] MEDS ORDERED: ONDANSETRON 4 MG/2 ML VIAL IVPB ONE (16:32)
[2018-12-19] MEDS ORDERED: SODIUM CHLORIDE 1,000 ML IV STA (16:32)
--- NOTE | 2018-12-19 16:32 | PDOC ---
Rapid Medical Evaluation Time Seen by Provider: 12/19/18 16:29 Medical Evaluation: Allergies Allergy/AdvReac Type Severity Reaction Status Date / Time No Known Drug Allergies Allergy Verified 11/04/18 09:18 environmental Allergy Uncoded 11/04/18 09:18 12/19/18 16:29 CC: nausea, vomiting and diarrhea s/p chemo last week. PMHx-cervical CA PE: No focal findings. Orders: labs, urine, zofran, NS Patient will proceed to ED for further evaluation. Discharge Disposition - Diagnosis Nausea & vomiting - Referrals - Patient Instructions - Post Discharge Activity
[2018-12-19 16:33] VITALS: BMI 23.0
--- NOTE | 2018-12-19 17:20 | PDOC ---
History of Present Illness <Honey Conti - Last Filed: 12/19/18 18:11> - History of Present Illness Initial Comments: 12/19/18 17:22 CHIEF COMPLAINT: N/V/D HISTORY OF PRESENT ILLNESS: 58 yo F with cervical cancer (s/p last radiation therapy 3 days ago, last chemo treatment 1 week ago) presents to ED with persistent nausea and vomiting since he rlast radiation treatment 3 days ago. Patient reports 3-4 episodes of vomiting daily as well as 4 episodes of diarrhea daily. Patient reports persistent nausea despite taking Zofran that was prescribed by her doctor. She has also been taking Immodium RTC for diarrhea as rxed by her doctor. Patient denies any chills or fever. surgical oncologist - MD Ortega chemo - MD Ureña radiation - MD Gonzalez No recent travel or sick contacts. PAST MEDICAL HISTORY: cervical ca FAMILY HISTORY: Denies SOCIAL HISTORY: Denies tobacco, alcohol, illicit drug use. SURGICAL HISTORY: Denies ALLERGIES: No known drug allergies REVIEW OF SYSTEMS General/Constitutional: Denies fever or chills. Denies weakness, weight change. HEENT: Denies change in vision. Denies ear pain or discharge. Denies sore throat. Cardiovascular: Denies chest pain or shortness of breath. Respiratory: Denies cough, wheezing, or hemoptysis. Gastrointestinal: Persistent nausea/vomiting/diarrhea. Denies constipation. Denies rectal bleeding. Genitourinary: Denies dysuria, frequency, or change in urination. Musculoskeletal: Denies joint or muscle swelling or pain. Denies neck or back pain. Skin and breasts: Denies rash or easy bruising. Neurologic: Denies headache, vertigo, loss of consciousness, or loss of sensation. Psychiatric: Denies depression or anxiety. PHYSICAL EXAM General Appearance: Well-appearing, appropriately dressed. No apparent distress , no intoxication. HEENT: EOMI, PERRLA, normal ENT inspection, normal voice, TMs normal, pharynx normal. No conjunctival pallor. No photophobia, scleral icterus. Neck: Supple. Trachea midline. No tenderness, rigidity, carotid bruit, stridor , lymphadenopathy, or thyromegaly. Respiratory/Chest: Lungs CTAB. No shortness of breath, chest tenderness, respiratory distress, accessory muscle use. No crackles, rales, rhonchi, stridor , wheezing, dullness Cardiovascular: RRR. S1, S2. No JVD, murmur, bradycardia, tachycardia. Vascular Pulses: Dorsalis-Pedis (R): 2+, Dorsalis-Pedis (L): 2+ Gastrointestinal/Abdominal: Normal bowel sounds. Abdomen soft, non-distended. No tenderness or rebound tenderness. No organomegaly, pulsatile mass, guarding , hernia, hepatomegaly, splenomegaly. Lymphatic: No adenopathy, tenderness. Musculoskeletal/Extremities: Normal inspection. FROM of all extremities, normal capillary refill. Pelvis Stable. No CVA tenderness. No tenderness to extremities, pedal edema, swelling, erythema or deformity. Integumentary: Appropriate color, dry, warm. No cyanosis, erythema, jaundice or rash Neurologic: family life educator II-XII intact. Fully oriented, alert. Appropriate mood/affect. Motor strength 5/5. No appreciable EOM palsy, facial droop or sensory deficit. <Carline Hedrick - Last Filed: 12/19/18 18:48> - General Chief Complaint: Nausea/Vomiting Stated Complaint: NAUSEA/DIARRHEA Time Seen by Provider: 12/19/18 16:29 Past History <Honey Conti - Last Filed: 12/19/18 18:11> - Past Medical History Anemia: Yes Asthma: No Cancer: Yes (CERVICAL) Cardiac Disorders: No CVA: No COPD: No CHF: No Dementia: No Diabetes: No GI Disorders: No Disorders: No HTN: No Hypercholesterolemia: No Liver Disease: No Seizures: No Thyroid Disease: No - Surgical History Abdominal Surgery: No Appendectomy: No Cardiac Surgery: No Cholecystectomy: Yes (2015, lap) Lung Surgery: No Neurologic Surgery: No Orthopedic Surgery: No - Immunization History Immunization Up to Date: Yes - Psycho Social/Smoking Cessation Hx Smoking History: Never smoked Have you smoked in the past 12 months: Yes Number of Cigarettes Smoked Daily: 3 'Breaking Loose' booklet given: 11/01/18 Hx Alcohol Use: No Drug/Substance Use Hx: No Substance Use Type: None Hx Substance Use Treatment: No <Carline Hedrick - Last Filed: 12/19/18 18:48> - Past Medical History Allergies/Adverse Reactions: Allergies Allergy/AdvReac Type Severity Reaction Status Date / Time No Known Drug Allergies Allergy Verified 12/19/18 18:31 environmental Allergy Uncoded 12/19/18 18:31 Home Medications: Ambulatory Orders Magnesium Oxide [Magnesium] 500 mg PO DAILY 12/19/18 Metoclopramide HCl [Reglan -] 10 mg PO TID #21 tablet 12/19/18 Nitrofurantoin Monohyd/M-Cryst [Macrobid -] 100 mg PO BID #14 capsule 12/19/18 *Physical Exam - Vital Signs Last Vital Signs Temp Pulse Resp BP Pulse Ox 98.2 F 84 17 147/69 97 12/19/18 16:30 12/19/18 16:30 12/19/18 16:30 12/19/18 16:30 12/19/18 17:30 <Honey Conti - Last Filed: 12/19/18 18:11> - Vital Signs Last Vital Signs Temp Pulse Resp BP Pulse Ox 98.2 F 84 17 147/69 97 12/19/18 16:30 12/19/18 16:30 12/19/18 16:30 12/19/18 16:30 12/19/18 16:30 <Carline Hedrick - Last Filed: 12/19/18 18:48> ED Treatment Course - LABORATORY CBC & Chemistry Diagram: 12/19/18 17:07 12/19/18 17:07 - ADDITIONAL ORDERS Additional order review: Laboratory Results 12/19/18 12/19/18 12/19/18 17:07 17:07 17:07 WBC 2.3 L RBC 3.99 Hgb 11.6 Hct 35.4 MCV 88.6 MCH 29.2 MCHC 32.9 RDW 15.0 Plt Count 231 D MPV 7.0 L Absolute Neuts (auto) 1.5 Neutrophils % 66.2 Lymphocytes % 20.3 Monocytes % 12.0 H Eosinophils % 1.0 Basophils % 0.5 Nucleated RBC % 0 Sodium 139 Potassium 4.3 Chloride 106 Carbon Dioxide 28 Anion Gap 5 L BUN 11.6 Creatinine 1.1 Est GFR (CKD-EPI)AfAm 65.00 Est GFR (CKD-EPI)NonAf 56.08 Random Glucose 94 Calcium 8.9 Total Bilirubin 0.1 L AST 16 ALT 30 Alkaline Phosphatase 59 Total Protein 6.8 Albumin 3.7 Lipase 152 Urine Color Yellow Urine Appearance Clear Urine pH 5.5 Ur Specific [place] 1.018 Urine Protein Trace Urine Glucose (UA) Negative Urine Ketones Negative Urine Blood Trace Urine Nitrite Negative Urine Bilirubin Negative Urine Urobilinogen 0.2 Ur Leukocyte Esterase 2+ H Urine WBC (Auto) 70 Urine RBC (Auto) 5 Urine Casts (Auto) 9 U Epithel Cells (Auto) 1.0 Urine Bacteria (Auto) 81.9 12/19/18 17:07 RBC 3.99 MCV 88.6 MCHC 32.9 RDW 15.0 MPV 7.0 L Neutrophils % 66.2 Lymphocytes % 20.3 Monocytes % 12.0 H Eosinophils % 1.0 Basophils % 0.5 - Medications Given in the ED: ED Medications Discontinued Medications Generic Name Dose Route Start Last Admin Trade Name Freq PRN Reason Stop Dose Admin Diphenhydramine HCl 25 mg 12/19/18 17:25 12/19/18 17:44 Benadryl Injection - IVPUSH 12/19/18 17:26 25 mg ONCE ONE Administration Sodium Chloride 1,000 mls @ 1,000 mls/hr 12/19/18 16:32 12/19/18 17:30 Normal Saline - IV 12/19/18 17:31 1,000 mls/hr ASDIR STA Administration Metoclopramide HCl 10 mg 12/19/18 17:25 12/19/18 17:44 Reglan Injection - IVPUSH 12/19/18 17:26 10 mg ONCE ONE Administration Ondansetron HCl 8 mg 12/19/18 16:32 12/19/18 17:30 Zofran Injection IVPB 12/19/18 16:33 8 mg ONCE ONE Administration <Honey Conti - Last Filed: 12/19/18 18:11> - LABORATORY CBC & Chemistry Diagram: 12/19/18 17:07 12/19/18 17:07 <Carline Hedrick - Last Filed: 12/19/18 18:48> Medical Decision Making - Medical Decision Making 12/19/18 18:11 The patient was seen and evaluated in conjunction with midlevel provider under my direct supervision, ancillary studies were reviewed. I agree with the plan as outlined with XIOMARA Hedrick. HPI, workup/dispo as outlined. VS reviewed, wnl. labs and lytes normal, baseline leukopenic, no systemic findings UA with leuk esterase/wbcs, salo with UTI? anticipate discharge, pcp followup, return precautions 12/19/18 18:11 <Honey Conti - Last Filed: 12/19/18 18:11> - Medical Decision Making 12/19/18 18:32 58 yo F with cervical cancer (s/p last radiation therapy 3 days ago, last chemo treatment 1 week ago) presents to ED with persistent nausea and vomiting unrelieved by Zofran since her last radiation treatment 3 days ago. labs unremarkable UA wiht 70 WBC will treat for UTI 12/19/18 18:47 Patient reassessed after administration of meds; states she is feeling much better after Reglan and that her diarrhea has becomes less watery. Patient states she is ready to go home. -reglan rx -macrobid rx Advised patient to take medication as prescribed and follow up with oncologist within 24 hours. Advised patient of signs and symptoms for return to ED. Patient verbalized understanding and agrees to plan. <Carline Hedrick - Last Filed: 12/19/18 18:48> Discharge <Honey Conti - Last Filed: 12/19/18 18:11> - Discharge Information Problems reviewed: Yes - Admission No <Carline Hedrick - Last Filed: 12/19/18 18:48> - Discharge Information Clinical Impression/Diagnosis: Adverse effect of radiation therapy Qualifiers: Encounter type: initial encounter Qualified Code(s): T66.XXXA - Radiation sickness, unspecified, initial encounter Urinary tract infection Qualifiers: Urinary tract infection type: site unspecified Hematuria presence: without hematuria Qualified Code(s): N39.0 - Urinary tract infection, site not specified Condition: Stable Disposition: HOME - Additional Discharge Information Prescriptions: Metoclopramide HCl [Reglan -] 10 mg PO TID #21 tablet Nitrofurantoin Monohyd/M-Cryst [Macrobid -] 100 mg PO BID #14 capsule - Follow up/Referral Referrals: Modesto Jarvis MD [Primary Care Provider] - - Patient Discharge Instructions Patient Printed Discharge Instructions: Coping with Nausea and Vomiting From Chemotherapy, DI for Vomiting -- Adult Additional Instructions: Please take medications as prescribed. As discussed, please follow up with Dr. Ureña for continued management of your symptoms. If you develop fever, chills, continued nausea or diarrhea, or any new or worsening symptoms, please return to the ER. - Post Discharge Activity
[2018-12-19] MEDS ORDERED: METOCLOPRAMIDE HCL INJECTION 10 MG/2 ML VIAL IVPUSH ONE (17:25)
[2018-12-19] MEDS ORDERED: ONDANSETRON 4 MG/2 ML VIAL ONE (17:26)
[2018-12-19 17:37] LABS: BASO % 0.5 % (0-2.0); HEMATOCRIT 35.4 % (32.4-45.2); HEMOGLOBIN 11.6 GM/dL (10.7-15.3); LYMPH % 20.3 % (8-40); MCH 29.2 pg (25.7-33.7); MCHC 32.9 g/dl (32.0-36.0); MEAN CELL VOLUME 88.6 fl (80-96); NEUT % 66.2 % (42.8-82.8); PLATELET COUNT 231 K/MM3 (134-434); RBC 3.99 M/mm3 (3.60-5.2); WHITE BLOOD COUNT 2.3 K/mm3 (4.0-10.0)
[2018-12-19 17:39] LABS: HYALINE CASTS 9 /lpf (0-8); PH,URINE 5.5 (5.0-8.0); URINE APPEARANCE CLEAR; URINE BACTERIA 81.9 /hpf (NEGATIVE); URINE BILIRUBIN NEGATIVE (NEGATIVE); URINE COLOR YELLOW; URINE GLUCOSE (UA) NEGATIVE (NEGATIVE); URINE KETONE NEGATIVE (NEGATIVE); URINE LEUK ESTERASE 2+ (NEGATIVE); URINE NITRITE NEGATIVE (NEGATIVE); URINE PROTEIN TRACE (NEGATIVE); URINE RBC 5 /hpf (0-4); URINE UROBILINOGEN 0.2 mg/dL (0.2-1.0); URINE WBC 70 /hpf (0-5)
[2018-12-19] MEDS ORDERED: METOCLOPRAMIDE HCL INJECTION 10 MG/2 ML VIAL ONE (17:40)
[2018-12-19 18:04] LABS: ALBUMIN 3.7 g/dl (3.4-5.0); BILIRUBIN,TOTAL 0.1 mg/dL (0.2-1); BLOOD UREA NITROGEN 11.6 mg/dL (7-18); CALCIUM 8.9 mg/dL (8.5-10.1); CREATININE 1.1 mg/dL (0.55-1.3); POTASSIUM 4.3 mmol/L (3.5-5.1); TOT PROT 6.8 g/dl (6.4-8.2)
[2018-12-19 18:24] VITALS: BP 147/64; PULSE 69; TEMP 98.7
== END 2018-12-19 19:01 | disposition home or self-care (01) ==
LOC: JER 16:26
PROC: 3E033GC Introduction of Other Therapeutic Substance into Peripheral Vein, Percutaneous Approach (ICD-10-PCS; principal; 2018-12-19)
PROC: 3E033GC Introduction of Other Therapeutic Substance into Peripheral Vein, Percutaneous Approach (ICD-10-PCS; 2018-12-19)
PROC: 3E033GC Introduction of Other Therapeutic Substance into Peripheral Vein, Percutaneous Approach (ICD-10-PCS; 2018-12-19)
DX: T66.XXXA Radiation sickness, unspecified, initial encounter (principal); R11.2 Nausea with vomiting, unspecified; R19.7 Diarrhea, unspecified; N39.0 Urinary tract infection, site not specified; C53.9 Malignant neoplasm of cervix uteri, unspecified
CPT/HCPCS: 36415; 80053; 81003; 83690; 85025; 87086; 99283-25; J7030

== ENCOUNTER → 2019-01-17 | Day surgery (SDC) | payer OTHER | END | disposition home or self-care (01) | LOC: JRADIR 09:25 | PROVIDERS: ATTEND Internal Medicine Hematology & Oncology | PROC: B518YZZ Fluoroscopy of Superior Vena Cava using Other Contrast (ICD-10-PCS; principal; 2019-01-17) | DX: Z43.8 Encounter for attention to other artificial openings (principal); C53.9 Malignant neoplasm of cervix uteri, unspecified | CPT/HCPCS: 36598 ==

== ENCOUNTER 2019-11-16 10:27 | Emergency (ER) | payer OTHER ==
[2019-11-16 10:42] VITALS: TEMP 97.2; BMI 21.4
--- OUTSIDE RECORDS SUMMARY | 2019-11-16 10:44 | XMS ---
:1960 Author Organization [facility] Care Team Providers Name Role Phone Darkey, Damon Unavailable Unavailable Darkey, Damon Unavailable Unavailable Darkey, Damon Unavailable Unavailable Darkey, Damon Unavailable Unavailable Aszalos, Maria T Lata Unavailable Unavailable Aszalos, Lata Unavailable Unavailable Aszalos, Lata Unavailable Unavailable Aszalos, Lata Unavailable Unavailable Aszalos, Lata Unavailable Unavailable Aszalos, Lata Unavailable Unavailable Aszalos, Lata Unavailable Unavailable Aszalos, Lata Unavailable Unavailable Aszalos, Lata Unavailable Unavailable Gege Boyce MD Unavailable Unavailable Gege Boyce MD Unavailable Unavailable Gege Boyce MD Unavailable Unavailable Gege Boyce MD Unavailable Unavailable Gege Boyce MD Unavailable Unavailable Gege Boyce MD Unavailable Unavailable Gege Boyce MD Unavailable Unavailable Gege Boyce MD Unavailable Unavailable Gege Boyce MD Unavailable Unavailable Gege Boyce MD Unavailable Unavailable Gege Boyce MD Unavailable Unavailable Gege Boyce MD Unavailable Unavailable Gege Boyce MD Unavailable Unavailable Gege Boyce MD Unavailable Unavailable Gege Boyce MD Unavailable Unavailable Re-disclosure Warning The records that you are about to access may contain information from federally- assisted alcohol or drug abuse programs. If such information is present, then the following federally mandated warning applies: This information has been disclosed to you from records protected by federal confidentiality rules (42 CFR part 2). The federal rules prohibit you from making any further disclosure of this information unless further disclosure is expressly permitted by the written consent of the person to whom it pertains or as otherwise permitted by 42 CFR part 2. A general authorization for the release of medical or other information is NOT sufficient for this purpose. The Federal rules restrict any use of the information to criminally investigate or prosecute any alcohol or drug abuse patient.The records that you are about to access may contain highly sensitive health information, the redisclosure of which is protected by Article 27-F of the [facility] Public Health law. If you continue you may haveaccess to information: Regarding HIV / AIDS; Provided by facilities licensed or operated by the [facility] Office of Mental Health; or Provided by the [facility] Office for People With Developmental Disabilities. If such information is present, then the following [facility] mandated warning applies: This information has been disclosed to you from confidential records which are protected by state law. State law prohibits you from making any further disclosure of this information without the specific written consent of the person to whom it pertains, or as otherwise permitted by law. Any unauthorized further disclosure in violation of state law may result in a fine or intermediate sentence or both. A general authorization for the release of medical or other information is NOT sufficient authorization for further disclosure. Encounters Encounter Providers Location Date Indications Data Source(s ) Outpatient 11/26/2019 [facility] 02:09:00 PM Medical Cent[facility] r EDT Outpatient 11/26/2019 [facility] 12:00:00 AM Medical Cente r EDT Attender: Ciarra [facility] 10/22/2018 AMAL[facility] ([facility] [place] 01:40:00 PM [facility] EDT - Center) 10/22/2018 01:40:00 PM EDT Attender: Maria T [facility] 02:54:00 PM [facility] EDT - Center) 07/11/2018 02:54:00 PM EDT Outpatient 07/10/2018 [facility] 02:20:00 PM Medical Cente r EDT Outpatient 07/10/2018 [facility] 12:00:00 AM Medical Cente r EDT Emergency H 06/19/2018 [facility] 08:53:00 AM Medical Cente r EDT 06/19/2018 [facility] 12:00:00 AM Medical Cente r EDT - 06/26/2016 12:00:00 AM EDT Attender: [place] 07/12/2016 [facility] ([facility] 09:14:00 AM [facility] EDT - Center) 07/12/2016 09:14:00 AM EDT Attender: [place] 07/05/2016 [facility] ([facility] 10:34:00 AM [facility] EDT - [place]) 07/05/2016 10:34:00 AM EDT Medications Medication Brand Start Product Dose Route Administrative Pharmacy [facility] Indications Reaction Description Data Name Date Form Instructions Instructions Source(s) doxycycline doxycy 1 complet Miguel nt hyclate 100 bloom ed [facility] Oral hyclat Medical Tablet e 100 Center doxycycline mg hyclate 100 Tablet mg Tablet, , Ordered By: Kallie alvarenga By: Jn Escobedo MDDirection Gregg s: 1 tablet , oral twice MDDire a day ctions : 1 tablet oral twice a day Insurance Providers Payer name Policy type Policy ID Covered Covered democrat's Policy P meghann / Coverage democrat ID relationship to [place] Inf ormation type cort[place] [facility] [id number] - [id number] [facility] [id number] O [id number] 01 [id number] [place] [id number] SP [id number] [facility] [id number] - [id number] [facility] Problems, Conditions, and Diagnoses Code Display Name Description Problem Type Effective Dates Data Source(s) R10.31 Right lower RIGHT LOWER Diagnosis 06/19/2018 [facility] quadrant pain [facility] 08:53:00 AM EDT Med [facility] Center Results ID Date Data Source [id number] 11/06/2019 09:39:00 AM EDT [facility] Name Value Range Interpretation Code Description Data Stacia rce(s) Supporting Document(s ) HOLOGIC [facility] SARS-CoV-2 TMA PCR This lab was [facility] and reported by [employer]. ID Date Data Source [id number] 10/29/2019 08:59:00 AM EDT [facility] Name Value Range Interpretation Code Description Data Stacia rce(s) Supporting Document(s ) HOLOGIC [place] SARS-CoV-2 TMA PCR This lab was ordered by [employer] Speech[employer]RAD VILLASEÑOR and reported by [employer]. ID Date Data Source [id number] 10/15/2019 09:34:00 AM EDT [facility] Name Value Range Interpretation Code Description Data Stacia rce(s) Supporting Document(s ) HOLOGIC [place] SARS-CoV-2 TMA PCR This lab was ordered by Integration ManagementDEYANIRA VILLASEÑOR and reported by [employer]. ID Date Data Source [id number] 10/09/2019 09:50:00 AM EDT [facility] Name Value Range Interpretation Code Description Data Stacia rce(s) Supporting Document(s ) HOLOGIC [facility] SARS-CoV-2 TMA PCR This lab was ordered by Integration ManagementDEYANIRA VILLASEÑOR and reported by [employer]. ID Date Data Source [id number] 10/02/2019 11:32:00 AM EDT [facility] Name Value Range Interpretation Code Description Data Stacia rce(s) Supporting Document(s ) HOLOGIC [place] SARS-CoV-2 TMA PCR This lab was ordered by [facility] Speech[employer]RAD VILLASEÑOR and reported by [employer]. ID Date Data Source [id number] 09/25/2019 12:04:00 PM EDT [facility] Name Value Range Interpretation Code Description Data Stacia rce(s) Supporting Document(s ) HOLOGIC [facility] SARS-CoV-2 TMA PCR This lab was ordered by Integration ManagementDEYANIRA VILLASEÑOR and reported by [employer]. ID Date Data Source [id number] 09/18/2019 11:56:00 AM EDT [facility] Name Value Range Interpretation Code Description Data Stacia rce(s) Supporting Document(s ) SARS-CoV-2 [facility] , RNA This lab was ordered by Integration ManagementDEYANIRA VILLASEÑOR and reported by [employer]. ID Date Data Source [id number] 09/11/2019 09:02:00 AM EDT [facility] Name Value Range Interpretation Code Description Data Stacia rce(s) Supporting Document(s ) SARS-CoV-2 [facility] , RNA This lab was ordered by ZulahooROXANNE VILLASEÑOR and reported by [employer]. ID Date Data Source [id number] 09/04/2019 09:28:00 AM EDT [facility] Name Value Range Interpretation Code Description Data Stacia rce(s) Supporting Document(s ) SARS-CoV-2 [facility] , RNA This lab was ordered by [employer] HireNUSRAT VILLASEÑOR and reported by [employer]co. ID Date Data Source [id number] 08/27/2019 01:00:00 AM EDT [facility] Name Value Range Interpretation Code Description Data Stacia rce(s) Supporting Document(s ) SARS-CoV-2 [facility] , RNA This lab was ordered by [employer] [facility] HireNUSRAT VILLASEÑOR and reported by [employer]. ID Date Data Source [id number] 08/14/2019 09:29:00 AM EDT [facility] Name Value Range Interpretation Code Description Data Stacia rce(s) Supporting Document(s ) SARS-CoV-2 [facility] , RNA This lab was ordered by [employer] HireNUSRAT VILLASEÑOR and reported by [employer]. ID Date Data Source [id number] 08/06/2019 01:58:00 PM EDT [facility] Name Value Range Interpretation Code Description Data Stacia rce(s) Supporting Document(s ) SARS-CoV-2 [facility] , RNA This lab was ordered by [employer] Pange[employer] and reported by [employer]co. ID Date Data Source [id number] 08/01/2019 12:00:00 AM EDT [facility] Name Value Range Interpretation Code Description Data Stacia rce(s) Supporting Document(s ) 2019-nCoV [facility] RNA XXX ALEX+probe- Imp This lab was ordered by [employer] and reported by Ketsu. ID Date Data Source [id number] 07/25/2019 12:00:00 AM EDT [facility] Name Value Range Interpretation Code Description Data Stacia rce(s) Supporting Document(s ) 2018-nCoV [facility] RNA XXX ALEX+probe- Imp This lab was ordered by [employer] and reported by [employer]etsu. ID Date Data Source [id number] 07/22/2019 11:38:00 AM EDT [facility] Name Value Range Interpretation Code Description Data Stacia rce(s) Supporting Document(s ) SARS-CoV-2 [facility] , RNA This lab was ordered by [employer] and reported by Lenco. ID Date Data Source [id number] 07/17/2019 10:47:00 AM EDT [facility] Name Value Range Interpretation Code Description Data Stacia rce(s) Supporting Document(s ) SARS-CoV-2 [facility] , RNA This lab was ordered by ROSA VILLASEÑOR and reported by Cehn. ID Date Data Source Urinalysis 06/19/2018 09:35:00 AM EDT [facility] Name Value Range Interpretation Description Data Sup porting Code Source(s) Document(s ) Glucose NEGATIVE <content [facility] [Mass/volume] styleCode="Rayo Martinezs in Urine by d">Urine Medical Test strip Glucose Center </content>NEGA TIVE MG/DL<content styleCode="Elsa lics"> (NEGATIVE MG/DL)</conten t> Ketones NEGATIVE <content [facility] [Mass/volume] styleCode="Rayo Karla in Urine by d">Urine Medical Test strip Ketone Center </content>NEGA TIVE MG/DL<content styleCode="Elsa lics"> (NEGATIVE MG/DL)</conten t> UNK CLEAR <content [facility] styleCode="Rayo Karla d">Urine Medical Clarity Center </content>ISAAC R <content styleCode="Elsa lics"> (CLEAR )</content> UNK NEGATIVE <content [facility] styleCode="Rayo Karla d">Urine Medical Bilirubin Center </content>SMAL L <content styleCode="Elsa lics"> (NEGATIVE )</content> Color of Urine YELLOW <content [facility] styleCode="Rayo Karla d">Color, Medical Urine Center </content>YELL OW <content styleCode="Elsa lics"> (YELLOW )</content> Protein NEGATIVE <content [facility] [Mass/volume] styleCode="Rayo Martinezs in Urine by d">Urine Medical Test strip Protein Center </content>30 MG/DL<content styleCode="Elsa lics"> (NEGATIVE MG/DL)</conten t> Specific 1.015-1.02 Above high <content [facility] gravity of 5 normal styleCode="Rayo Martinezs Urine by Test d">Urine Medical strip Specific Center [place] </content>>= 1.030 H<content styleCode="Elsa lics"> (1.015-1.025 )</content> pH of Urine by 4.5-8.0 <content [facility] Test strip styleCode="Rayo Karla d">Urine pH Medical </content>6.0 Center <content styleCode="Elsa lics"> (4.5-8.0 )</content> Nitrite NEGATIVE <content [facility] [Presence] in styleCode="Rayo Martinezs Urine by Test d">Urine Medical strip Nitrite Center </content>NEGA TIVE <content styleCode="Elsa lics"> (NEGATIVE )</content> Hemoglobin NEGATIVE <content [facility] [Presence] in styleCode="Rayo Martinezs Urine by Test d">Urine Blood Medical strip </content>SMAL Center L <content styleCode="Elsa lics"> (NEGATIVE )</content> Urobilinogen 0.2-1.0 <content [facility] [Units/volume] styleCode="Rayo Karla in Urine by d">Urine Medical Test strip Urobilinogen Center </content>0.2 MG/DL<content styleCode="Elsa lics"> (0.2-1.0 MG/DL)</conten t> UNK 0-3 <content Saint styleCode="Rayo Karla d">Urine White Medical Blood Cell Center </content>5 - 10 HPF<content styleCode="Elsa lics"> (0-3 HPF)</content> UNK 0-3 <content Saint styleCode="Rayo Karla d">Urine Red Medical Blood Cell Center </content>5 - 10 HPF<content styleCode="Elsa lics"> (0-3 HPF)</content> UNK <content [facility] styleCode="Rayo Karla d">Amorphous Medical Crystal Center </content>FEW LPF (Reference Range: not available)<br/ > UNK NEGATIVE <content [facility] styleCode="Rayo Karla d">Urine Medical Bacteria Center </content>MODE RATE HPF<content styleCode="Elsa lics"> (NEGATIVE HPF)</content> Leukocyte NEGATIVE <content [facility] esterase styleCode="Rayo Karla [Presence] in d">Urine Medical Urine by Test Leukocyte Center strip </content>SMAL L <content styleCode="Elsa lics"> (NEGATIVE )</content> UNK <content Saint styleCode="Rayo Acosta d">Epithelial Medical Cell Center </content>5 - 10 LPF (Reference Range: not available)<br/ > ID Date Data Source Microbiology 06/19/2018 09:35:00 AM EDT [facility] Name Value Range Interpretation Code Description Data Stacia rce(s) Supporting Document(s ) UNK <item><content [facility] styleCode="Bold"> Medical [facility] er Culture Report </content>
<t able><tbody><tr>< td>Specimen Number:</td><td>[id number]</td></tr ><tr><td>Sample Collection Date/Time: </td><td> 9 9:35 AM</td></tr><tr>< td>Specimen Source:</td><td>U RINE</td></tr><tr ><td>Urine Culture:</td><td> Collection Plate Date: 06/19/2018 09:48 </td></tr><tr><td >Culture Status:</td><td>P reliminary </td></tr><tr><td >Culture Report:</td><td>C ulture in progress </td></tr></tbody ></table></item> UNK <item><content [facility] styleCode="Bold"> Medical [facility] er Culture Status </content>
<t able><tbody><tr>< td>Specimen Number:</td><td>[id number]</td></tr ><tr><td>Sample Collection Date/Time: </td><td> 9 9:35 AM</td></tr><tr>< td>Specimen Source:</td><td>U RINE</td></tr><tr ><td>Culture Status:</td><td>P reliminary </td></tr><tr><td >Culture Report:</td><td>C ulture in progress </td></tr><tr><td >Urine Culture:</td><td> Collection Plate Date: 06/19/2018 09:48 </td></tr></tbody ></table></item> ID Date Data Source Liver Profile 06/19/2018 09:32:00 AM EDT [facility] Name Value Range Interpretation Description Data Sup porting Code Source(s) Document(s ) Aspartate 14-36 <content [facility] aminotransferase styleCode="Bold"> [facility] [Enzymatic Aspartate Medical activity/volume] Aminotransferase Center in Serum or Plasma (AST) </content>16 IU/L<content styleCode="Italic s"> (14-36 IU/L)</content> Alanine 7-30 <content [facility] aminotransferase styleCode="Bold"> [facility] [Enzymatic Alanine Medical activity/volume] Aminotransferase Center in Serum or Plasma (ALT) </content>18 IU/L<content styleCode="Italic s"> (7-30 IU/L)</content> Albumin 3.5-5.0 <content [facility] [Mass/volume] in styleCode="Bold"> [facility] Serum or Plasma Albumin Medical </content>4.0 Center G/DL<content styleCode="Italic s"> (3.5-5.0 G/DL)</content> Bilirubin.total 0.2-1.3 <content [facility] [Mass/volume] in styleCode="Bold"> [facility] Serum or Plasma Bilirubin Total Medical </content>0.5 Center MG/DL<content styleCode="Italic s"> (0.2-1.3 MG/DL)</content> Alkaline 38-126 <content [facility] phosphatase styleCode="Bold"> [facility] [Enzymatic Alkaline Medical activity/volume] Phosphatase (ALP) Cente r in Serum or Plasma </content>58 IU/L<content styleCode="Italic s"> (38-126 IU/L)</content> UNK 0.0-0.3 <content [facility] styleCode="Bold"> [facility] Bilirubin, Direct Medical </content>< 0.2 Center MG/DL<content styleCode="Italic s"> (0.0-0.3 MG/DL)</content> ID Date Data Source HematologyRou 06/19/2018 09:32:00 AM EDT [facility] Name Value Range Interpretation Description Data Sup porting Code Source(s) Document(s ) Leukocytes 4.4-11.0 <content [facility] [#/volume] in styleCode="Bold Karla Blood by ">White Blood Medical Automated count Cell Count Center </content>8.53 KCUMM<content styleCode="Ital ics"> (4.4-11.0 KCUMM)</content > Erythrocytes 4.0-5.1 <content [facility] [#/volume] in styleCode="Bold Karla Blood by ">Red Blood Medical Automated count Cell Count Center </content>4.49 MCUMM<content styleCode="Ital ics"> (4.0-5.1 MCUMM)</content > Erythrocyte mean 26.0-34. <content [facility] corpuscular 0 styleCode="Bold Karla hemoglobin ">Mean Medical [Entitic mass] Corposcular Center by Automated Hemoglobin count </content>29.2 PG<content styleCode="Ital ics"> (26.0-34.0 PG)</content> Hematocrit 36.0-46. <content [facility] [Volume 0 styleCode="Bold Karla Fraction] of ">Hematocrit Medical Blood by </content>39.3 Center Automated count %<content styleCode="Ital ics"> (36.0-46.0 %)</content> Erythrocyte mean 32.0-37. <content [facility] corpuscular 0 styleCode="Bold Karla hemoglobin ">Mean Corpus. Medical concentration Hgb Center [Mass/volume] by Concentration Automated count (MCHC) </content>33.3 G/DL<content styleCode="Ital ics"> (32.0-37.0 G/DL)</content> Erythrocyte mean 80.0-100 <content [facility] corpuscular .0 styleCode="Bold Karla volume [Entitic ">Mean Medical volume] by Corpuscular Center Automated count Volume </content>87.5 FL<content styleCode="Ital ics"> (80.0-100.0 FL)</content> Hemoglobin 12.3-16. <content [facility] [Mass/volume] in 0 styleCode="Bold Karla Blood ">Hemoglobin Medical </content>13.1 Center G/DL<content styleCode="Ital ics"> (12.3-16.0 G/DL)</content> UNK 0.0 <content Saint styleCode="Bold Karla ">Nucleated Red Medical Blood Cell Center Count </content>0.00 KCUMM<content styleCode="Ital ics"> (0.0 KCUMM)</content > UNK 0 <content Saint styleCode="Bold Karla ">Nucleated Red Medical Blood Cell Center </content>0.0 /100<content styleCode="Ital ics"> (0 /100)</content> Erythrocyte 11.5-14. <content [facility] distribution 5 styleCode="Bold Karla width [Ratio] by ">Red Cell Medical Automated count Distribution Center Width </content>14.0 %<content styleCode="Ital ics"> (11.5-14.5 %)</content> Platelet mean 8.0-11.0 <content [facility] volume [Entitic styleCode="Bold Karla volume] in Blood ">Mean Platelet Medical by Automated Volume Center count </content>9.8 FL<content styleCode="Ital ics"> (8.0-11.0 FL)</content> Platelets 130-400 <content [facility] [#/volume] in styleCode="Bold Karla Blood by ">Platelet Medical Automated count Count Center </content>235 KCUMM<content styleCode="Ital ics"> (130-400 KCUMM)</content > ID Date Data Source GFR(Creatinine) 06/19/2018 09:32:00 AM EDT [facility] Name Value Range Interpretation Code Description Data Stacia rce(s) Supporting Document(s ) UNK > 60 <content [facility] styleCode="Bold"> Medical Cent er EGFR </content>96 GFR<content styleCode="Italic s"> (> 60 GFR)</content> ID Date Data Source [id number] 06/19/2018 09:32:00 AM EDT [facility] Name Value Range Interpretation Description Data Sup porting Code Source(s) Document(s ) Lipase 23-300 <content [facility] [Enzymatic styleCode="Bold Medical activity/vo ">Lipase Center lume] in </content>50 Serum or IU/L<content Plasma styleCode="Ital ics"> (23-300 IU/L)</content> ID Date Data Source BMP 06/19/2018 09:32:00 AM EDT [facility] Name Value Range Interpretation Description Data Sup porting Code Source(s) Document(s ) Carbon dioxide, 22-30 <content [facility] total styleCode="Bold"> [facility] [Moles/volume] in Carbon Dioxide Medical Serum or Plasma </content>27 Center MEQ/L<content styleCode="Italic s"> (22-30 MEQ/L)</content> Potassium 3.5-5.3 <content [facility] [Moles/volume] in styleCode="Bold"> [facility] Serum or Plasma Potassium Medical </content>3.6 Center MEQ/L<content styleCode="Italic s"> (3.5-5.3 MEQ/L)</content> Chloride 98-107 <content [facility] [Moles/volume] in styleCode="Bold"> [facility] Serum or Plasma Chloride Medical </content>107 Center MEQ/L<content styleCode="Italic s"> (98-107 MEQ/L)</content> Sodium 137-145 <content [facility] [Moles/volume] in styleCode="Bold"> [facility] Serum or Plasma Sodium Medical </content>140 Center MEQ/L<content styleCode="Italic s"> (137-145 MEQ/L)</content> UNK 7-17 <content [facility] styleCode="Bold"> [facility] BUN </content>10 Medical MG/DL<content Center styleCode="Italic s"> (7-17 MG/DL)</content> Creatinine 0.5-1.3 <content [facility] [Mass/volume] in styleCode="Bold"> [facility] Serum or Plasma Creatinine Medical </content>0.8 Center MG/DL<content styleCode="Italic s"> (0.5-1.3 MG/DL)</content> Alanine 7-30 <content [facility] aminotransferase styleCode="Bold"> [facility] [Enzymatic Alanine Medical activity/volume] Aminotransferase Center in Serum or Plasma (ALT) </content>18 IU/L<content styleCode="Italic s"> (7-30 IU/L)</content> Glucose 74-106 Above high <content [facility] [Mass/volume] in normal styleCode="Bold"> [facility] Serum or Plasma Glucose Medical </content>146 Center MG/DL H<content styleCode="Italic s"> (74-106 MG/DL)</content> Aspartate 14-36 <content [facility] aminotransferase styleCode="Bold"> [facility] [Enzymatic Aspartate Medical activity/volume] Aminotransferase Center in Serum or Plasma (AST) </content>16 IU/L<content styleCode="Italic s"> (14-36 IU/L)</content> Alkaline 38-126 <content [facility] phosphatase styleCode="Bold"> [facility] [Enzymatic Alkaline Medical activity/volume] Phosphatase (ALP) Cente r in Serum or Plasma </content>58 IU/L<content styleCode="Italic s"> (38-126 IU/L)</content> UNK > 60 <content [facility] styleCode="Bold"> [facility] EGFR </content>96 Medical GFR<content Center styleCode="Italic s"> (> 60 GFR)</content> Calcium 8.4-10. <content [facility] [Mass/volume] in 2 styleCode="Bold"> [facility] Serum or Plasma Calcium Medical </content>9.5 Center MG/DL<content styleCode="Italic s"> (8.4-10.2 MG/DL)</content> Bilirubin.total 0.2-1.3 <content [facility] [Mass/volume] in styleCode="Bold"> [facility] Serum or Plasma Bilirubin Total Medical </content>0.5 Center MG/DL<content styleCode="Italic s"> (0.2-1.3 MG/DL)</content> Albumin 3.5-5.0 <content [facility] [Mass/volume] in styleCode="Bold"> [facility] Serum or Plasma Albumin Medical </content>4.0 Center G/DL<content styleCode="Italic s"> (3.5-5.0 G/DL)</content> Procedure Social History Code Duration Value Status Description Data Source(s ) Smoking 06/19/2018 09:15:00 Daily Smoker completed Daily Smoker S [facility] Smoking 06/19/2018 09:15:00 Daily Smoker completed Daily Smoker S [facility] Smoking 06/19/2018 08:55:00 Daily Smoker completed Daily Smoker S [facility] Vital Signs ID Date Data Source UNK Name Value Range Interpretation Code Description Data Source(s) Body temperature 36.371673 36.926875 [facility] Respiratory rate 20 /min 20 /min [facility] Oxygen saturation 98 % 98 % [facility] by Pulse oximetry Heart rate 68 /min 68 /min [facility] Diastolic blood 62 mm[Hg] 62 mm[Hg] [facility] Systolic blood 114 mm[Hg] 114 mm[Hg] [facility] Body weight 70.959746 kg 70.105845 kg [facility] Measured [facility] Body temperature 36.083518 36.019313 [facility] Respiratory rate 1 /min 1 /min [facility] Oxygen saturation 99 % 99 % [facility] by Pulse oximetry Heart rate 82 /min 82 /min [facility] Body height 170.750707 170.635659 cm [facility] Diastolic blood 75 mm[Hg] 75 mm[Hg] [facility] pressure [facility] Systolic blood 133 mm[Hg] 133 mm[Hg] [facility] Body mass index 24.1 kg/m2 24.1 kg/m2 [facility] (BMI) [Ratio] Medical [facility] Body weight 65.739304 kg 65.734924 kg [facility] Body temperature 36.625512 36.290756 [facility] Respiratory rate 16 /min 16 /min [facility] Oxygen saturation 99 % 99 % [facility] [facility] Arterial blood [facility] by Pulse oximetry Heart rate 86 /min 86 /min [facility] Body height [id number] [phone] cm [facility] cm [facility] Diastolic blood 64 mm[Hg] 64 mm[Hg] [facility] pressure [facility] Systolic blood 130 mm[Hg] 130 mm[Hg] [facility] pressure [facility] Body mass index 21.4 kg/m2 21.4 kg/m2 [facility] (BMI) [Ratio] Medical Stephanie ter Patient Treatment Plan of Care Planned Activity Planned Date Details Description Data Source (s) doxycycline hyclate 100 MG [facility] Oral Tablet [place]
--- NOTE | 2019-11-16 10:52 | PDOC ---
History of Present Illness - General Chief Complaint: Lightheaded Stated Complaint: CHEST PAIN,BODYACHES,LIGHTHEADED Time Seen by Provider: 11/16/19 10:51 History Source: Patient Exam Limitations: No Limitations - History of Present Illness Initial Comments: 11/16/19 10:51 HPI: This is a 59 y/o female with a PMH of cervical ca s/p hysterectomy/chemo/rad iation presenting to the ED because of 4 days of non-productive cough and sharp pleuritic chest pain. She began not feeling well 5 days ago when she had congestion, sore throat, and body aches. Those symptoms have resolved, butf she visited her doctor 2 days ago when her cough started getting worse. They did a chest xray but said they weren't able to tell if it was pneumonia vs bronchitis. She was prescribed a Z-pack which she finished today as well as prednisone which she never took. She is coming into today because the z-pack didn't improve her symptoms. Her son and grandson had similar symptoms while have since resolved. 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 Was also tested two days ago at doctors office. Negative so far. ROS: Constitutional - Pt denies Fever, Chills, weakness, HEENT: denies vision changes, sore throat Respiratory: Admits to non-productive cough, SOB, Pleuritic chest pain, Denies hemoptysis Cardiac: denies chest pain, palpitations, light headedness, leg swelling Abd/GI: denies abd pain, nausea, vomiting : denies dysuria, frequency, Musculskelatal - denies back pain, joint swelling skin - denies bruising, erythema, rash neurological: denies headache, numbness, focal weakness, hematologic: denies anemia, easy bruising, easy bleeding PMH: cervical ca s/p hysterectomy/chemo/radiation PSH: Hysterectomy Social hx: Admits to tobacco use, denied etoh Meds: See nurse note Allergies: KNDA PE: ADULT Physical ExaM GENERAL: The patient is awake, alert, and fully oriented, Nontoxic - in no acute distress. HEAD: Normocephalic, atraumatic. EYES: extraocular movements intact, ENT: Normal voice, Moist mucous membranes. NECK: Normal range of motion, supple without lymphadenopathy, JVD, or masses. LUNGS: Breath sounds equal, slightly decreased bilaterally. HEART: Regular rate and rhythm, normal S1 and S2 without murmur, rub or gallop. ABDOMEN: Soft, nontender, normoactive bowel sounds. EXTREMITIES: Normal range of motion, no edema. NEUROLOGICAL: No facial asymmetry, Normal speech, normal gait. PSYCH: Normal mood, normal affect. SKIN: Warm, Dry MDM: 11/16/19 13:25 This is a 59 y/o female with a PMH of cervical ca s/p hysterectomy/chemo/radiation presenting to the ED because of 4 days of non- productive cough and sharp pleuritic chest pain. - Doubt acs but will check cardiac panel due to chest pain - Most likely viral bronchitis that didnt respond to abx. Patient is a smoker - Will get basic labs, CBC, CMP - Covid test - Check CXR for pneumonia - Albuterol treatment -All labs WNL - COvid test pending - Patient feeling better with albuterol treatment - Patient is saturating well while walking. Staying above 95% - Patient is stable to d/c with return precautions and follow-up - Will send albuterol/nebulizer to pharmacy Past History - Medical History Allergies/Adverse Reactions: Allergies Allergy/AdvReac Type Severity Reaction Status Date / Time No Known Drug Allergies Allergy Verified 11/16/19 10:33 environmental Allergy Uncoded 11/16/19 10:33 Home Medications: Ambulatory Orders Albuterol 0.083% Nebulizer Oksana [Ventolin 0.083% Nebulizer Soln -] 1 amp NEB Q6H PRN #60 amp 11/16/19 Nebulizer [Deann Lc Sprint Sinus] 1 each MC PRN #1 each 11/16/19 Anemia: Yes Asthma: No Cancer: Yes (CERVICAL) Cardiac Disorders: No CVA: No COPD: No CHF: No Dementia: No Diabetes: No GI Disorders: No Disorders: No HTN: No Hypercholesterolemia: No Liver Disease: No Seizures: No Thyroid Disease: No - Surgical History Abdominal Surgery: No Appendectomy: No Cardiac Surgery: No Cholecystectomy: Yes (2015, lap) Lung Surgery: No Neurologic Surgery: No Orthopedic Surgery: No - Immunization History Immunization Up to Date: Yes - Psycho-Social/Smoking History Smoking History: Current every day smoker Have you smoked in the past 12 months: Yes Number of Cigarettes Smoked Daily: 2 Information on smoking cessation initiated: No 'Breaking Loose' booklet given: 11/01/18 - Substance Abuse Hx (Audit-C & DAST Scrn) How often the patient has six or more drinks on one occasion: Never Score: In Men: 4 or > Positive; In Women: 3 or > Positive: 0 Screen Result (Pos requires Nsg. Audit-10AR): Negative In the last yr the pt used illegal drug/Rx for NonMed reason: No Score: Yes response is considered Positive: 0 Screen Result (Positive result requires Nsg. DAST-10): Negative *Physical Exam - Vital Signs Last Vital Signs Temp Pulse Resp BP Pulse Ox 97.2 F L 93 H 16 122/65 100 11/16/19 10:34 11/16/19 10:34 11/16/19 10:34 11/16/19 10:34 11/16/19 10:34 ED Treatment Course - LABORATORY CBC & Chemistry Diagram: 11/16/19 12:28 11/16/19 12:28 Discharge - Discharge Information Problems reviewed: Yes Clinical Impression/Diagnosis: Bronchitis Condition: Stable Disposition: HOME - Additional Discharge Information Prescriptions: Nebulizer [Deann Lc Sprint Sinus] 1 each MC PRN #1 each Albuterol 0.083% Nebulizer Oksana [Ventolin 0.083% Nebulizer Soln -] 1 amp NEB Q6H PRN #60 amp PRN Reason: Shortness Of Breath - Follow up/Referral Referrals: Modesto Jarvis MD [Primary Care Provider] - - Patient Discharge Instructions Patient Printed Discharge Instructions: DI for Acute Bronchitis, How to Use a Nebulizer Additional Instructions: You came into the ED today because you have a cough that wasn't improving All of your labs and chest xray came back normal Its likely you have bronchitis caused by a virus. We sent a prescription for a nebulizer to the pharmacy on Please use it as prescribed Please return to the ED with any new or concerning symptoms. Please follow-up with your primary care provider in the next weeks, especially if your symptoms don't improve. - Post Discharge Activity Work/Back to School Note: Back to Work
[2019-11-16] MEDS ORDERED: ACETAMINOPHEN 325 MG TABLET (FP) PO ONE (11:29)
[2019-11-16] MEDS ORDERED: ACETAMINOPHEN 325 MG TABLET (FP) ONE (11:43)
[2019-11-16] MEDS ORDERED: ALBUTEROL SO4 HFA INHALER IH ONE ×2 (12:20→12:41)
--- NOTE | 2019-11-16 12:38 | PDOC ---
Documentation entered by Sheree Davies SCRIBE, acting as scribe for Jeanette Chow MD. Jeanette Chow MD: This documentation has been prepared by the scribe, Sheree Davies SCRIBE, under my direction and personally reviewed by me in its entirety. I confirm that the documentation accurately reflects all work, treatment, procedures, and medical decision making performed by me. Attending Attestation - Resident Resident Name: Chana Machado - ED Attending Attestation I have performed the following: I have examined & evaluated the patient, The case was reviewed & discussed with the resident, I agree w/resident's findings & plan, Exceptions are as noted - HPI HPI: 11/16/19 11:01 Patient is a 59 year old female with a significant past medical history of cervical cancer (s/p hysterectomy/chemo/radiation), who presents to the ED with a non-productive cough and chest tightness x4 days. Patient stated she initially had body aches, congestion, and a sore throat which has resolved and saw PCP 2 days ago when her cough started worsening. Patient described her chest pain as "sharp". Patient denies: any other related symptoms. Allergies: NKDA - Physicial Exam PE: 11/16/19 11:01 GENERAL: Awake, alert, and fully oriented, in no acute distress. Well-appearing. HEAD: No signs of trauma EYES: PERRLA, EOMI, sclera anicteric, conjunctiva clear ENT: Auricles normal inspection, hearing grossly normal, nares patent, oropharynx clear without exudates. Moist mucosa NECK: Normal ROM, supple, no lymphadenopathy, JVD, or masses LUNGS: Dec air entry B/L, no wheezes/rales. HEART: Regular rate and rhythm, normal S1 and S2, no murmurs, rubs or gallops ABDOMEN: Soft, nontender, normoactive bowel sounds. No guarding, no rebound. No masses EXTREMITIES: Normal range of motion, no edema. No clubbing or cyanosis. No cords, erythema, or tenderness NEUROLOGICAL: Cranial nerves II through XII grossly intact. Normal speech, normal gait SKIN: Warm, Dry, normal turgor, no rashes or lesions noted. - Medical Decision Making 11/16/19 12:36 Suspect this is bronchitis based on history of smoking, recent cough. She gets tested weekly for COVID at work (works at [employer]), last test was negative. She had two family members (her child and her grandchild) that had recent URIs, but they both tested negative for COVID. Will check CXR to r/o pna. Will give albuterol. She has rx for steroids but was concerned about taking them. Reassured her that they will be helpful. 11/16/19 13:55 Pt reports improvement with albuterol. Stable for DC home. Discharge - Discharge Information Problems reviewed: Yes Clinical Impression/Diagnosis: Bronchitis Condition: Stable - Follow up/Referral Referrals: Modesto Jarvis MD [Primary Care Provider] - - Patient Discharge Instructions - Post Discharge Activity
[2019-11-16 13:16] LABS: BASO % 0.6 % (0-2.0); EOS % 0.7 % (0-4.5); LYMPH % 15.9 % (8-40); MCH 29.6 pg (25.7-33.7); MCHC 32.6 g/dl (32.0-36.0); MEAN CELL VOLUME 90.8 fl (80-96); MEAN PLT VOLUME 7.6 fl (7.5-11.1); MONO % 8.1 % (3.8-10.2); NEUT % 74.7 % (42.8-82.8); PLATELET COUNT 215 K/MM3 (134-434); RBC 4.74 M/mm3 (3.60-5.2); RDW 14.3 % (11.6-15.6); WHITE BLOOD COUNT 5.9 K/mm3 (4.0-10.0)
[2019-11-16 13:37] LABS: ANION GAP 5 MMOL/L (8-16); CALCIUM 9.4 mg/dL (8.5-10.1); CHLORIDE 107 mmol/L (98-107); CO2 27 mmol/L (21-32); CREATININE 0.9 mg/dL (0.55-1.3); GLUCOSE,RANDOM 89 mg/dL (74-106); SODIUM 139 mmol/L (136-145)
[2019-11-16 14:27] VITALS: BP 118/65; PULSE 82
--- NOTE | 2019-11-17 11:05 | EKG ---
Test Reason : Blood Pressure : / mmHG Vent. Rate : 070 BPM Atrial Rate : 070 BPM P-R Int : 162 ms QRS Dur : 074 ms QT Int : 398 ms P-R-T Axes : 074 056 025 degrees QTc Int : 429 ms NORMAL SINUS RHYTHM SEPTAL INFARCT , AGE UNDETERMINED ABNORMAL ECG NO PREVIOUS ECGS AVAILABLE Confirmed by MABLE NAZARIO MD ([id number]) on 11/17/2019 11:05:39 AM Referred By: Confirmed By:MABLE NAZARIO MD
== END 2019-11-16 14:28 | disposition home or self-care (01) ==
LOC: JER 10:27
DX: J20.9 Acute bronchitis, unspecified (principal)
CPT/HCPCS: 36415; 71046-TC-FY; 80048; 82550; 82553; 84484; 85025; 93005; 93010; 99285-25; U0003

== ENCOUNTER 2020-05-07 10:06 | Emergency (ER) | payer OTHER ==
[2020-05-07 10:12] VITALS: BP 155/66; PULSE 79; TEMP 98; BMI 23.3
[2020-05-07] MEDS ORDERED: CYCLOBENZAPRINE HCL 10 MG TABLET (FP) PO ONE (10:27)
[2020-05-07] MEDS ORDERED: KETOROLAC TROMETHAMINE 60 MG/2 ML VIAL IM ONE (10:27)
[2020-05-07] MEDS ORDERED: CYCLOBENZAPRINE HCL 10 MG TABLET (FP) ONE (10:47)
[2020-05-07] MEDS ORDERED: KETOROLAC TROMETHAMINE 60 MG/2 ML VIAL ONE (10:47)
== END 2020-05-07 12:02 | disposition home or self-care (01) ==
LOC: JERFT 10:06
PROC: 3E0233Z Introduction of Anti-inflammatory into Muscle, Percutaneous Approach (ICD-10-PCS; principal; 2020-05-07)
DX: M54.5 Low back pain (principal)
CPT/HCPCS: 99284-25

== ENCOUNTER 2023-06-25 09:45 | Emergency (ER) | payer OTHER ==
[2023-06-25 09:55] VITALS: BP 159/48; PULSE 69; RESP 17; TEMP 98.4; BMI 19.9
[2023-06-25] MEDS: KETOROLAC TROMETHAMINE 30 MG/1 ML VIAL IM ONE (10:45)
[2023-06-25] MEDS: ACETAMINOPHEN 500 MG TABLET (FP) PO ONE (10:45)
[2023-06-25] MEDS: LIDOCAINE 4% PATCH TP ONE (10:45)
[2023-06-25] MEDS ORDERED: LIDOCAINE 4% PATCH TP ONE (10:49)
[2023-06-25] MEDS ORDERED: ACETAMINOPHEN 325 MG TABLET (FP) ONE (10:49)
[2023-06-25] MEDS ORDERED: KETOROLAC TROMETHAMINE 60 MG/2 ML VIAL ONE (10:49)
[2023-06-25 10:54] LABS: EPI CELLS 27 /uL (0-25.1); HYALINE CASTS 0 /uL (0-3.1); PH,URINE 5.5 (5.0-8.0); URINE APPEARANCE CLEAR; URINE BACTERIA 218 /uL (0-1359); URINE BILIRUBIN NEGATIVE (NEGATIVE); URINE COLOR YELLOW; URINE GLUCOSE (UA) NEGATIVE (NEGATIVE); URINE KETONE NEGATIVE (NEGATIVE); URINE LEUK ESTERASE TRACE (NEGATIVE); URINE NITRITE NEGATIVE (NEGATIVE); URINE PROTEIN TRACE (NEGATIVE); URINE RBC 19 /uL (0-23.9); URINE UROBILINOGEN 0.2 mg/dL (0.2-1.0); URINE WBC 13 /uL (0-25.8)
[2023-06-25] MEDS: IBUPROFEN 400 MG TABLET (FP) PO ONE (11:26)
[2023-06-25] MEDS ORDERED: LIDOCAINE PATCH REMOVAL MC ONE (22:00)
== END 2023-06-25 12:15 | disposition home or self-care (01) ==
LOC: JER 09:45
PROC: 3E0233Z Introduction of Anti-inflammatory into Muscle, Percutaneous Approach (ICD-10-PCS; principal; 2023-06-25)
DX: M54.6 Pain in thoracic spine (principal); N39.0 Urinary tract infection, site not specified
CPT/HCPCS: 81003; 87086; 99284-25

== ENCOUNTER 2023-07-10 04:30 | Day surgery (SDC) | payer OTHER ==
[2023-07-09 10:07] VITALS: BMI 20.2
[2023-07-10] MEDS ORDERED: MIDAZOLAM HCL 2 MG/2 ML SINGLE DOSE VIAL ONE (11:47)
[2023-07-10] MEDS ORDERED: LIDOCAINE 1%/EPI 1:100000 (20 ML MULTI DOSE VIAL) ONE (11:48)
[2023-07-10] MEDS ORDERED: ACETAMINOPHEN 325 MG TABLET (FP) PO PRN (11:50)
[2023-07-10] MEDS ORDERED: ONDANSETRON 4 MG/2 ML VIAL IVPUSH PRN (11:50)
[2023-07-10] MEDS ORDERED: LACTATED RINGERS SOLUTION 1,000 ML IV SCH (12:00)
[2023-07-10] MEDS: ceFAZolin SODIUM 1 GM VIAL IVPB ONE (12:13)
[2023-07-10] MEDS ORDERED: FENTANYL CITRATE/PF 50 MCG/ML VIAL ONE (12:13)
[2023-07-10] MEDS ORDERED: PROPOFOL 20 ML ONE (12:13)
[2023-07-10] MEDS: LIDOCAINE 1%/EPI 1:100000 (20 ML MULTI DOSE VIAL) INF ONE (12:31)
[2023-07-10 13:00] VITALS: RESP 20; TEMP 98.3
[2023-07-10 13:42] VITALS: BP 112/60; PULSE 65
== END 2023-07-10 13:57 | disposition home or self-care (01) ==
LOC: JASU-SURG 04:30
PROVIDERS: ATTEND Obstetrics & Gynecology Gynecologic Oncology
PROC: 0JPT0WZ Removal of Totally Implantable Vascular Access Device from Trunk Subcutaneous Tissue and Fascia, Open Approach (ICD-10-PCS; principal; 2023-07-10 10:00)
DX: Z45.2 Encounter for adjustment and management of vascular access device (principal); Z85.41 Personal history of malignant neoplasm of cervix uteri